=== PATIENT | male | born 1965 | race African-American/Black ===

== ENCOUNTER 2017-05-22 05:10 | Day surgery (SDC) | payer MEDICAID ==
[2017-05-21 12:56] LABS: BASOPHILS 0.3 % (0-2); EOSINOPHILS 2.4 % (0-7); HEMATOCRIT 30.9 % (42.0-54.0); HEMOGLOBIN 10.4 g/dL (13.5-17.5); IMMATURE GRANULOCYTES 0.4 % (0-5); LYMPHOCYTES 19.9 % (15-50); MCH 34.3 pg (26.0-34.0); MCHC 33.7 g/dL (31.0-37.0); MEAN PLATELET VOLUME 10.3 fL (7.4-10.4); MONOCYTES 11.7 % (2-11); NEUTROPHILS 65.3 % (40-80); PLATELET COUNT 224 10x3/uL (130-400); RBC 3.03 10x6/uL (4.20-6.10); RDW 13.8 % (11.5-14.5); WBC 7.4 10x3/uL (4.8-10.8)
[2017-05-21 13:02] LABS: INR 1.15 (0.85-1.17); PROTIME 14.3 SECONDS (11.6-15.0)
[2017-05-21 13:09] LABS: CALCIUM 8.5 mg/dL (8.5-10.1)
[~2017-05-22] VITALS: Ht 180.3 cm; Wt 72.6 kg
[~2017-05-22 05:10] MED LIST: LOPRESSOR25 MG PO; NORVASC5 MG PO; PROVENTIL HFA6.7 GM INH
[2017-05-22 06:51] LABS: POTASSIUM - SERUM 3.5 mmol/L (3.5-5.1)
[2017-05-22] MEDS ORDERED: VITAMIN B-12500 MC1 PO (07:12)
[2017-05-22] MEDS ORDERED: NEURONTIN 300300 MG PO (07:13)
[2017-05-22] MEDS ORDERED: FOLIC ACID1 MG PO (07:13)
[2017-05-22] MEDS ORDERED: BUSPAR 15 MG TA15 MG PO (07:14)
[2017-05-22] MEDS ORDERED: RENA-VITE TABL0.8 MG PO (07:15)
[2017-05-22] MEDS ORDERED: NORVASC5 MG PO (07:15)
[2017-05-22] MEDS ORDERED: FUROSEMIDE40 MG PO (07:15)
[2017-05-22] MEDS ORDERED: FERROUS SULFAT325 MG PO (07:16)
[2017-05-22] MEDS ORDERED: NIASPAN500 MG PO (07:17)
[2017-05-22] MEDS ORDERED: GLUCOTROL 5 MG T5 MG PO (07:17)
[2017-05-22] MEDS ORDERED: HUMULIN 70100 UNIT/1 SC (07:19)
[2017-05-22 07:21] VITALS: BP 177/78; Ht 180.3 cm; Wt 72.6 kg
--- NOTE | 2017-05-22 07:31 | NUR ---
0730-PATIENT POOR HISTORIAN WITH DAILY MEDICATIONS. HOME BOTTLES BROUGHT FOR RECONCILLIATION, PT. UNABLE TO RECALL LAST DOSE OF EACH ONE TAKEN.
[2017-05-22] MEDS ORDERED: ULTRAM50 MG PO (11:02)
--- NOTE | 2017-05-22 11:22 | NUR ---
1115 BACK FROM LEFT ARM AV GRAFT GOOD THRILL AND BRUIT LEFT ARM DRESSING C/D/I ARM IN SLING FROM BLOCK ABLE TO MOVE FINGERS.
--- NOTE | 2017-05-22 14:04 | NUR ---
1215 IV DC WITH CATHER TIP INTACT
--- NOTE | 2017-05-23 15:06 | OP ---
PATIENT NAME: JUDY FERNANDEZ MEDICAL RECORD: [id number] :65 LOCATION:[facility] ADMISSION DATE: SURGEON: ISAI MESSINA MD DATE OF OPERATION: 05/22/2017 OPERATION PERFORMED: Implantation of a left arm proximal brachial artery to proximal basilic vein looped [place] Propaten 6 mm diameter straight PTFE AV graft. PREOPERATIVE NOTE: Mr. Fernandez is a 52-year-old -[place]wegian male with diabetes and hypertension and chronic kidney disease, who is on dialysis now with a tunneled catheter. He needs long-term access. His preoperative vein mapping has showed very small veins. I hope to be able to create a primary brachial basilic fistula in 2 stages. Under a nerve block requested especially to help provide vasodilatation, the patient was placed on the operating table in supine position and administered sedation and monitored per BRANCH CONTROLLER. The left arm was prepped and draped in sterile manner. Topical nitroglycerin paste was applied to the skin of the arm and forearm and a Rach drain used as a proximal venous tourniquet. Ultrasound examination of the vessels in the arm revealed mild to moderate atherosclerotic change in the brachial and radial artery with very small veins. Actually the cephalic vein appeared that it might be suitable for creation of a [place]-type wrist radiocephalic fistula or proximal radial artery based fistula; however, there was an area of occlusion in the cephalic vein near the antecubital space, which I felt would have doomed such an attempt. This patient, who is already on dialysis, needs long-term access, so that we can get his catheter out and minimize his catheter contact time. In the future, he may be a candidate for primary fistula, but I thought that the odds of successful fistula right now favor going ahead of a good graft. I made a vertical incision on the inner aspect of the arm and exposed the brachial artery and basilic vein. They were controlled with Silastic loops. I chose a 6-mm straight [place] Propaten PTFE graft. It was beveled and then the artery was opened for a distance of approximately 6-7 mm. The artery was flushed proximally and distally with heparinized saline and the graft then anastomosed end-to-side end of graft to side of artery with running 6-0 Prolene. The suture line was treated with Evicel and Fibrillar. The suture line was hemostatic. The graft was flushed with heparinized saline and clamped. It was then placed in a looping subcutaneous tunnel with a counterincision on the medial aspect of the antecubital space where actually I had explored for basilic vein and had disappointed findings. The graft was brought back up to the proximal incision where it was shortened and beveled and anastomosed end-to-side to the proximal basilic vein after flushing that vessel also with heparinized saline. The anastomosis completed with running 6-0 Prolene was also treated with Evicel. With release of all the occluding clamps and loops, excellent flow was immediately established in the fistula. Suture lines were hemostatic. The brachial artery at the antecubital level had pulsatile high resistance type Doppler flow signals, which to me indicates absence of significant stealing or reversal of flow at least. The wounds were irrigated with Ancef/gentamicin solution and closed with interrupted inverted 3-0 Vicryl and running intracuticular 4-0 Monocryl and Dermabond glue. They were dressed with Maxorb Ag, Tegaderm and Cavilon skin prep. The patient awakened and returned to the recovery room in stable condition with a very nice fistula, for which I have high expectations. OPERATIVE REPORT [id number] JUDY FERNANDEZ Blood loss was trivial and none replaced. All sponges, instruments and needles were accounted for. No drain was used and no surgical specimen was submitted for histopathology. PLAN: The graft should be able to be used in about 2 weeks. Until then, we will continue to use the tunneled catheter. I have him back to see me in my office next week. He will be discharged today with a prescription for tramadol 50, 20 of them, he can take 1 p.o. q.4 hours p.r.n. pain. He is to leave the initial operative dressings intact and I will remove them when I see him in the office. TRANSINT:[id number] Voice Confirmation ID: [id number] DOCUMENT ID: [id number] ISAI MESSINA MD at 1506 CC: JEFF TRINIDAD MD [id number] DICTATION DATE: 05/22/17 1116 SIDEROGRAPHER: 05/22/[address] [facility] 05/22/17 [place] [id number] [place] [id number]
== END 2017-05-22 12:30 | disposition home or self-care (01) ==
LOC: D.OPS 05:10 → D.PAN 08:00 → D.OPS 12:30
PROVIDERS: Anesthesiology
DX: E11.22 Type 2 diabetes mellitus with diabetic chronic kidney disease (principal); I12.0 Hypertensive chronic kidney disease with stage 5 chronic kidney disease or end stage renal disease; N18.6 End stage renal disease; Z99.2 Dependence on renal dialysis; J45.909 Unspecified asthma, uncomplicated; I10 Essential (primary) hypertension; B19.20 Unspecified viral hepatitis C without hepatic coma; Z01.812 Encounter for preprocedural laboratory examination

== ENCOUNTER 2017-05-25 10:56 | Emergency (ER) | payer MEDICAID ==
[2017-05-22 07:21] VITALS: BMI 22.3
[~2017-05-25 10:56] MED LIST changes: +BUSPAR 15 MG TA15 MG PO; +FERROUS SULFAT325 MG PO; +FOLIC ACID1 MG PO; +FUROSEMIDE40 MG PO; +GLUCOTROL 5 MG T5 MG PO; +HUMULIN 70100 UNIT/1 SC; +NEURONTIN 300300 MG PO; +NIASPAN500 MG PO; +RENA-VITE TABL0.8 MG PO; +ULTRAM50 MG PO; +VITAMIN B-12500 MC1 PO
[2017-05-25 12:23] LABS: BASOPHILS 0.1 % (0-2); EOSINOPHILS 2.6 % (0-7); HEMATOCRIT 29.2 % (42.0-54.0); HEMOGLOBIN 9.6 g/dL (13.5-17.5); IMMATURE GRANULOCYTES 0.4 % (0-5); LYMPHOCYTES 20.9 % (15-50); MCH 34.4 pg (26.0-34.0); MCHC 32.9 g/dL (31.0-37.0); MCV 104.7 fL (80.0-100.0); MEAN PLATELET VOLUME 10.4 fL (7.4-10.4); MONOCYTES 16.9 % (2-11); NEUTROPHILS 59.1 % (40-80); PLATELET COUNT 163 10x3/uL (130-400); RBC 2.79 10x6/uL (4.20-6.10); RDW 14.8 % (11.5-14.5); WBC 7.7 10x3/uL (4.8-10.8)
[2017-05-25 12:41] LABS: ALBUMIN 2.5 g/dL (3.4-5.0); BILIRUBIN - TOTAL 0.37 mg/dL (0.2-1.3); CALCIUM 8.1 mg/dL (8.5-10.1); CARBON DIOXIDE 25.7 mmol/L (21.0-32.0); CREATININE - SERUM 7.1 mg/dL (0.6-1.3); POTASSIUM - SERUM 3.7 mmol/L (3.5-5.1); PROTEIN - SERUM 8.4 g/dL (6.4-8.2)
== END 2017-05-25 12:25 | disposition home or self-care (01) ==
LOC: D.ER 10:56
PROVIDERS: Family Medicine
DX: G89.18 Other acute postprocedural pain (principal); I12.9 Hypertensive chronic kidney disease with stage 1 through stage 4 chronic kidney disease, or unspecified chronic kidney disease; N18.9 Chronic kidney disease, unspecified; E11.9 Type 2 diabetes mellitus without complications; Z99.2 Dependence on renal dialysis

== ENCOUNTER 2017-07-04 19:51 | Inpatient (IN) | payer MEDICAID ==
[~2017-07-04] VITALS: Ht 180.3 cm; Wt 77.5 kg
[2017-07-04 20:02] LABS: BASOPHILS 0 % (0-2); EOSINOPHILS 2.3 % (0-7); HEMOGLOBIN 9.8 g/dL (13.5-17.5); IMMATURE GRANULOCYTES 0.3 % (0-5); LYMPHOCYTES 19.6 % (15-50); MCH 34.5 pg (26.0-34.0); MCHC 32.7 g/dL (31.0-37.0); MCV 105.6 fL (80.0-100.0); MEAN PLATELET VOLUME 9.7 fL (7.4-10.4); MONOCYTES 7.8 % (2-11); PLATELET COUNT 165 10x3/uL (130-400); RBC 2.84 10x6/uL (4.20-6.10); RDW 13.9 % (11.5-14.5)
[2017-07-04 20:21] LABS: ALBUMIN 2.7 g/dL (3.4-5.0); ANION GAP 10.7 mmol/L (8-16); BILIRUBIN - TOTAL 0.65 mg/dL (0.2-1.3); CALCIUM 8.9 mg/dL (8.5-10.1); CARBON DIOXIDE 29.9 mmol/L (21.0-32.0); CREATININE - SERUM 4.8 mg/dL (0.6-1.3); POTASSIUM - SERUM 3.6 mmol/L (3.5-5.1); PROTEIN - SERUM 8.9 g/dL (6.4-8.2)
[2017-07-04] MEDS ORDERED: XALATAN 0.0052.5 ML EACH EYE (21:30)
[2017-07-04] MEDS ORDERED: XANAX0.5 MG PO (21:31)
[2017-07-05 02:55] VITALS: BMI 23.7
[2017-07-05 03:34] VITALS: BP 139/77
[2017-07-05 07:00] VITALS: BP 112/77
[2017-07-05 13:07] VITALS: BP 138/80
[2017-07-05 16:00] VITALS: BP 139/88
[2017-07-05 21:41] VITALS: BP 117/54
[2017-07-06 01:10] VITALS: BP 133/70
[2017-07-06 04:58] VITALS: BP 122/62
[2017-07-06 05:02] LABS: BASOPHILS 0 % (0-2); EOSINOPHILS 6.5 % (0-7); HEMATOCRIT 27.4 % (42.0-54.0); IMMATURE GRANULOCYTES 0.2 % (0-5); LYMPHOCYTES 34.1 % (15-50); MCHC 32.8 g/dL (31.0-37.0); MCV 106.6 fL (80.0-100.0); MEAN PLATELET VOLUME 10.3 fL (7.4-10.4); MONOCYTES 13.5 % (2-11); NEUTROPHILS 45.7 % (40-80); PLATELET COUNT 154 10x3/uL (130-400); RBC 2.57 10x6/uL (4.20-6.10); RDW 14.2 % (11.5-14.5); WBC 4.1 10x3/uL (4.8-10.8)
[2017-07-06 05:18] LABS: ANION GAP 16.9 mmol/L (8-16); CARBON DIOXIDE 24.9 mmol/L (21.0-32.0); POTASSIUM - SERUM 3.8 mmol/L (3.5-5.1)
[2017-07-06 05:22] LABS: CREATININE - SERUM 6.6 mg/dL (0.6-1.3)
[2017-07-06 08:14] VITALS: BP 137/70
[2017-07-06 12:08] VITALS: Ht 180.3 cm; Wt 77.5 kg
[2017-07-06 16:13] VITALS: BP 141/75
[2017-07-06 20:00] VITALS: BP 130/76
[2017-07-07 04:00] VITALS: BP 136/60
[2017-07-07 06:08] LABS: BASOPHILS 0.2 % (0-2); EOSINOPHILS 5.7 % (0-7); HEMATOCRIT 29.5 % (42.0-54.0); HEMOGLOBIN 9.3 g/dL (13.5-17.5); IMMATURE GRANULOCYTES 0.2 % (0-5); LYMPHOCYTES 38.9 % (15-50); MCH 34.3 pg (26.0-34.0); MCHC 31.5 g/dL (31.0-37.0); MEAN PLATELET VOLUME 10.7 fL (7.4-10.4); MONOCYTES 17.3 % (2-11); NEUTROPHILS 37.7 % (40-80); PLATELET COUNT 165 10x3/uL (130-400); RBC 2.71 10x6/uL (4.20-6.10); WBC 4.2 10x3/uL (4.8-10.8)
[2017-07-07 06:25] LABS: ALBUMIN 2.3 g/dL (3.4-5.0); ANION GAP 17.9 mmol/L (8-16); BILIRUBIN - DIRECT 0.12 mg/dL (0.00-0.30); BILIRUBIN - INDIRECT 0.21 mg/dL (0.00-1.00); BILIRUBIN - TOTAL 0.33 mg/dL (0.2-1.3); CALCIUM 7.8 mg/dL (8.5-10.1); CARBON DIOXIDE 23.3 mmol/L (21.0-32.0); CREATININE - SERUM 7.4 mg/dL (0.6-1.3); PHOSPHOROUS 7.4 mg/dL (2.5-4.9); POTASSIUM - SERUM 4.2 mmol/L (3.5-5.1); PROTEIN - SERUM 7.9 g/dL (6.4-8.2)
[2017-07-07 06:45] LABS: MCV 108.9 fL (80.0-100.0)
[2017-07-07 09:12] VITALS: BP 132/60
[2017-07-07 12:10] VITALS: BP 130/71
[2017-07-07 17:34] VITALS: BP 134/75
[2017-07-07 21:31] VITALS: BP 165/84
[2017-07-08 00:30] VITALS: BP 135/67
[2017-07-08 04:30] VITALS: BP 126/72
[2017-07-08 06:16] LABS: BASOPHILS 0.3 % (0-2); EOSINOPHILS 7.3 % (0-7); HEMATOCRIT 30.8 % (42.0-54.0); HEMOGLOBIN 9.8 g/dL (13.5-17.5); LYMPHOCYTES 42.6 % (15-50); MCH 34.3 pg (26.0-34.0); MCHC 31.8 g/dL (31.0-37.0); MCV 107.7 fL (80.0-100.0); MEAN PLATELET VOLUME 9.8 fL (7.4-10.4); MONOCYTES 12.6 % (2-11); NEUTROPHILS 37.2 % (40-80); PLATELET COUNT 160 10x3/uL (130-400); RBC 2.86 10x6/uL (4.20-6.10); RDW 13.8 % (11.5-14.5)
[2017-07-08 06:32] LABS: ANION GAP 13.6 mmol/L (8-16); CALCIUM 7.8 mg/dL (8.5-10.1); CARBON DIOXIDE 27.5 mmol/L (21.0-32.0); PHOSPHOROUS 6.3 mg/dL (2.5-4.9); POTASSIUM - SERUM 4.1 mmol/L (3.5-5.1)
[2017-07-08 09:37] VITALS: BP 119/72
[2017-07-08 12:33] VITALS: BP 126/66
[2017-07-08] MEDS ORDERED: ZITHROMAX250 MG PO (12:34)
[2017-07-08 14:21] LABS: HEPATITIS BE ANTIBODY Negative (Negative)
== END 2017-07-08 15:06 | disposition home or self-care (01) | DRG 152 ==
LOC: D.ER 19:51 → OBSVTIME 20:48 → D.M2 20:48
PROVIDERS: Emergency Medicine; Internal Medicine; Internal Medicine Nephrology
PROC: 5A1D70Z Performance of Urinary Filtration, Intermittent, Less than 6 Hours Per Day (ICD-10-PCS; principal; 2017-07-07)
DX: J11.1 Influenza due to unidentified influenza virus with other respiratory manifestations (principal); N18.6 End stage renal disease; I12.0 Hypertensive chronic kidney disease with stage 5 chronic kidney disease or end stage renal disease; E11.22 Type 2 diabetes mellitus with diabetic chronic kidney disease; Z99.2 Dependence on renal dialysis; B19.20 Unspecified viral hepatitis C without hepatic coma; Z72.0 Tobacco use

== ENCOUNTER 2017-07-14 16:33 | Emergency (ER) | payer MEDICAID ==
[~2017-07-14 16:33] MED LIST changes: +XALATAN 0.0052.5 ML EACH EYE; +XANAX0.5 MG PO; +ZITHROMAX250 MG PO
[2017-07-14 17:20] LABS: BASOPHILS 0 % (0-2); EOSINOPHILS 3.4 % (0-7); HEMOGLOBIN 10.4 g/dL (13.5-17.5); IMMATURE GRANULOCYTES 0.2 % (0-5); LYMPHOCYTES 34.1 % (15-50); MCH 35.5 pg (26.0-34.0); MCHC 33.5 g/dL (31.0-37.0); MCV 105.8 fL (80.0-100.0); MEAN PLATELET VOLUME 9.7 fL (7.4-10.4); MONOCYTES 13.7 % (2-11); NEUTROPHILS 48.6 % (40-80); PLATELET COUNT 173 10x3/uL (130-400); RBC 2.93 10x6/uL (4.20-6.10); RDW 13.3 % (11.5-14.5); WBC 4.2 10x3/uL (4.8-10.8)
[2017-07-14 17:41] LABS: ALBUMIN 2.7 g/dL (3.4-5.0); ANION GAP 13.5 mmol/L (8-16); BILIRUBIN - TOTAL 0.41 mg/dL (0.2-1.3); CALCIUM 7.8 mg/dL (8.5-10.1); CREATININE - SERUM 5.2 mg/dL (0.6-1.3); POTASSIUM - SERUM 3.5 mmol/L (3.5-5.1); PROTEIN - SERUM 8.9 g/dL (6.4-8.2)
[2017-07-14 18:29] LABS: APPEARANCE HAZY (CLEAR); BILIRUBIN NEGATIVE (NEGATIVE); COLOR YELLOW (YELLOW); GLUCOSE NEGATIVE (NEGATIVE); KETONE NEGATIVE (NEGATIVE); NITRITE NEGATIVE (NEGATIVE); PROTEIN TRACE mg/dL (NEGATIVE); SPECIFIC GRAVITY 1.015 (1.005-1.020); UROBILINOGEN NORMAL (NORMAL)
[2017-07-14 18:31] LABS: BACTERIA MODERATE /hpf (NONE SEEN); RED CELLS - URINE 0-5 /hpf (0-5); WHITE CELLS - URINE 0-5 /hpf (0-5)
[2017-07-14 19:30] LABS: UDS - AMPHET NEGATIVE QUAL (NEGATIVE); UDS - BARB NEGATIVE QUAL (NEGATIVE); UDS - BENZO NEGATIVE QUAL (NEGATIVE); UDS - COCAINE POSITIVE QUAL (NEGATIVE); UDS - OPIATE NEGATIVE QUAL (NEGATIVE); UDS - PCP NEGATIVE QUAL (NEGATIVE); UDS - THC NEGATIVE QUAL (NEGATIVE)
== END 2017-07-17 16:28 | disposition home or self-care (01) ==
LOC: D.ER 16:33
PROVIDERS: Emergency Medicine
DX: I12.9 Hypertensive chronic kidney disease with stage 1 through stage 4 chronic kidney disease, or unspecified chronic kidney disease (principal); N18.9 Chronic kidney disease, unspecified

== ENCOUNTER 2017-09-30 20:42 | Inpatient (IN) | payer MEDICAID ==
[~2017-09-30] VITALS: Ht 180.3 cm; Wt 79.6 kg
--- NOTE | ~2017-09-30 | HP ---
PATIENT: JUDY MCNULTY MEDICAL RECORD: [id number] ACCOUNT: [id number] LOCATION:[facility] [id number] : 65 ADMISSION DATE: 10/01/17 HISTORY AND PHYSICAL EXAMINATION REASON FOR ADMISSION: 1. Pneumonia. 2. Cellulitis of his left upper extremity graft with pneumonia to his right lower lobe. HISTORY OF PRESENT ILLNESS: This is a 52-year-old gentleman who struggles with cocaine addiction and depression related to the cocaine. He had missed some dialysis treatments and went and had his access needle infiltrate his fistula. He came to the Emergency Room for some pain related to his fistula and was found to have right lower lobe pneumonia along with his temperature that he had at home. REVIEW OF SYSTEMS: Indicating he is having severe pain and needs [place] and that was mostly the bases all of our conversation. No cough, congestion, shortness of breath, or sputum production. No pleurisy, mostly pain associated with his arm. All other review of systems are negative. PAST MEDICAL HISTORY: 1. Depression and has been admitted to inpatient facility for suicidal ideation that was evaluated and treated (likely needed a place to stay as he did not want to discontinue dialysis as he would ). 2. ESRD. 3. Cocaine addiction. 4. Hypertension. 5. Neuropathy. 6. Diabetes, insulin-dependent type 2. 7. Anemia of CKD. 8. Hyperphosphatemia. 9. Secondary hyperparathyroidism. PAST SURGICAL HISTORY: Left upper extremity graft placement. ALLERGIES: NKDA. SOCIAL HISTORY: Cocaine, but no tobacco, alcohol, or illicit drugs are mentioned. Not sure of his living situation. MEDICATIONS: Amlodipine 5 mg a day; metoprolol 25 b.i.d.; niacin 500 at night; Neurontin 300 b.i.d.; BuSpar 15 daily; Xanax 0.5 p.r.n.; Lasix 40 a day, that he is to take on nondialysis days; Xalatan 2.5 mL drops, 1 drop each night to each eye; NPH 20 b.i.d.; Glipizide 5 a day; vitamin B12 500 mcg a day; and Daysi-Manny 1 a day. PHYSICAL EXAMINATION: VITAL SIGNS: He is 142/72 by the medical doctor, 18 respiratory rate, 72 heart rate. GENERAL: He is alert and oriented times 3, up walking around. NEUROLOGIC: Cranial nerves II through XII are intact. NECK: No thyromegaly. UPPER EXTREMITIES: Left upper extremity graft with an infiltration, but not an HISTORY AND PHYSICAL [id number] JUDY MCNULTY obvious infection this morning. Some bruising and ecchymosis near the deltoid. Good thrill and bruit. LUNGS: Nonpulsatile lungs with right lower lobe crackles. ABDOMEN: Nontender in all 4 quadrants. LOWER EXTREMITIES: Trace lower extremity edema. No toe lesions or foot lesions. LABORATORY DATA: H&H with an MCV of 104. White blood cell count 5500. BUN 43, creatinine 6.7, glucose 124. AST and ALT are normal. Albumin 2.6. ASSESSMENT: 1. Pneumonia. He is on antibiotics from the Emergency Room. 2. End-stage renal disease. We will continue his dialysis and discuss compliance. 3. Cocaine addiction. He is usually remorseful and nice gentleman, but does consume a lot of his budget that has resulted in his inability to purchase food. He does eat very well while in the hospital. When he is at the dialysis unit, he asked for food constantly from patients and nurses. Albumin is only 2.6. 4. Hyperphosphatemia. I did not see that he had a binder. I am going to check his phosphorus. He may be simply following his diet, but that would likely be martín as he is unsure of the foods that have phosphorus despite education. 5. Anemia of CKD. If he remains admitted, we will continue erythropoietin. Hemoglobin is 10.7/32. 6. Hypertension. Continue current medications. 7. Depression. I do not think that he really intended to commit suicide as we discussed that he could simply stop dialysis and every time I have discussed this with him he has said that he does not want to and that would happen if he stopped dialysis. Generally, he needs a place to stay and knows that if he comes to the Emergency Room. PLAN: 1. Please see orders. 2. Dialysis. 3. Vancomycin and follow levels. 4. Resume medications, sliding scale. TRANSINT:[id number] Voice Confirmation ID: [id number] DOCUMENT ID: [id number] JEFF TRINIDAD MD at 1143 CC: [id number] DICTATION DATE: 10/01/17716 INTERIOR DESIGN PROFESSIONAL: 10/01/17833 DIS IN 10/07/17 [facility] [address] [facility] [place] [address]
[2017-09-30 23:22] LABS: BASOPHILS 0.4 % (0-2); EOSINOPHILS 3.4 % (0-7); HEMATOCRIT 32.3 % (42.0-54.0); HEMOGLOBIN 10.7 g/dL (13.5-17.5); IMMATURE GRANULOCYTES 0.4 % (0-5); LYMPHOCYTES 32.3 % (15-50); MCH 34.6 pg (26.0-34.0); MCHC 33.1 g/dL (31.0-37.0); MCV 104.5 fL (80.0-100.0); MEAN PLATELET VOLUME 10.2 fL (7.4-10.4); MONOCYTES 14.4 % (2-11); NEUTROPHILS 49.1 % (40-80); PLATELET COUNT 183 10x3/uL (130-400); RBC 3.09 10x6/uL (4.20-6.10); RDW 13.3 % (11.5-14.5); WBC 5.5 10x3/uL (4.8-10.8)
[2017-09-30 23:35] LABS: ALBUMIN 2.6 g/dL (3.4-5.0); ANION GAP 14.8 mmol/L (8-16); BILIRUBIN - TOTAL 0.4 mg/dL (0.2-1.3); CALCIUM 9.3 mg/dL (8.5-10.1); CARBON DIOXIDE 26.2 mmol/L (21.0-32.0); CREATININE - SERUM 6.7 mg/dL (0.6-1.3)
[2017-10-01 05:36] VITALS: BP 174/85
[2017-10-01 06:01] VITALS: BP 174/85; BMI 25.2
[2017-10-01 08:36] VITALS: BP 147/74
[2017-10-01 11:52] VITALS: BP 155/84
[2017-10-01 13:39] VITALS: Ht 180.3 cm; Wt 79.6 kg
[2017-10-01 15:40] VITALS: BP 143/78
[2017-10-01 20:37] VITALS: BP 123/71
[2017-10-02 00:46] VITALS: BP 108/64
[2017-10-02 05:50] VITALS: BP 99/54
[2017-10-02 07:55] VITALS: BP 109/64
[2017-10-02 11:37] VITALS: BP 124/63
[2017-10-02 15:35] VITALS: BP 117/69
[2017-10-02 20:00] VITALS: BP 127/65
[2017-10-03 01:00] VITALS: BP 140/78
[2017-10-03 05:30] VITALS: BP 115/52
[2017-10-03 07:06] LABS: BASOPHILS 0.2 % (0-2); EOSINOPHILS 5.2 % (0-7); HEMATOCRIT 31.6 % (42.0-54.0); HEMOGLOBIN 10.1 g/dL (13.5-17.5); IMMATURE GRANULOCYTES 0.2 % (0-5); LYMPHOCYTES 27.2 % (15-50); MCH 34.5 pg (26.0-34.0); MCV 107.8 fL (80.0-100.0); MEAN PLATELET VOLUME 9.8 fL (7.4-10.4); MONOCYTES 15.9 % (2-11); NEUTROPHILS 51.3 % (40-80); PLATELET COUNT 192 10x3/uL (130-400); RBC 2.93 10x6/uL (4.20-6.10); RDW 13.6 % (11.5-14.5); WBC 6.2 10x3/uL (4.8-10.8)
[2017-10-03 07:22] LABS: ANION GAP 16.2 mmol/L (8-16); CALCIUM 8.5 mg/dL (8.5-10.1); CARBON DIOXIDE 27.4 mmol/L (21.0-32.0); CREATININE - SERUM 8.3 mg/dL (0.6-1.3); PHOSPHOROUS 8.5 mg/dL (2.5-4.9); POTASSIUM - SERUM 4.6 mmol/L (3.5-5.1)
[2017-10-03 08:52] VITALS: BP 142/79
[2017-10-03 20:59] VITALS: BP 126/78
[2017-10-04 02:21] VITALS: BP 108/72
[2017-10-04 06:13] VITALS: BP 119/69
[2017-10-04 06:58] LABS: BASOPHILS 0.3 % (0-2); HEMATOCRIT 28.6 % (42.0-54.0); HEMOGLOBIN 9.1 g/dL (13.5-17.5); IMMATURE GRANULOCYTES 0.2 % (0-5); LYMPHOCYTES 27.3 % (15-50); MCH 34.3 pg (26.0-34.0); MCHC 31.8 g/dL (31.0-37.0); MCV 107.9 fL (80.0-100.0); MEAN PLATELET VOLUME 10.1 fL (7.4-10.4); NEUTROPHILS 51.2 % (40-80); PLATELET COUNT 197 10x3/uL (130-400); RBC 2.65 10x6/uL (4.20-6.10); RDW 13.5 % (11.5-14.5); WBC 6.6 10x3/uL (4.8-10.8)
[2017-10-04 07:22] LABS: ANION GAP 16.3 mmol/L (8-16); CALCIUM 8.3 mg/dL (8.5-10.1); CARBON DIOXIDE 22.3 mmol/L (21.0-32.0); CREATININE - SERUM 7.1 mg/dL (0.6-1.3); PHOSPHOROUS 7.3 mg/dL (2.5-4.9); POTASSIUM - SERUM 4.6 mmol/L (3.5-5.1); VANCOMYCIN - RANDOM 31.5 ug/mL (10.0-20.0)
[2017-10-04 08:15] VITALS: BP 118/76
[2017-10-04 11:53] VITALS: BP 123/72
[2017-10-04 15:46] VITALS: BP 132/70
[2017-10-04 21:22] VITALS: BP 139/68
[2017-10-05 01:10] VITALS: BP 156/62
[2017-10-05 05:09] VITALS: BP 121/77
[2017-10-05 05:14] LABS: BASOPHILS 0.2 % (0-2); EOSINOPHILS 4.7 % (0-7); HEMATOCRIT 31.7 % (42.0-54.0); IMMATURE GRANULOCYTES 0.2 % (0-5); LYMPHOCYTES 27.2 % (15-50); MCH 34.4 pg (26.0-34.0); MCHC 31.5 g/dL (31.0-37.0); MCV 108.9 fL (80.0-100.0); MEAN PLATELET VOLUME 9.6 fL (7.4-10.4); MONOCYTES 14.7 % (2-11); PLATELET COUNT 192 10x3/uL (130-400); RBC 2.91 10x6/uL (4.20-6.10); RDW 13.6 % (11.5-14.5); WBC 6.3 10x3/uL (4.8-10.8)
[2017-10-05 05:45] LABS: ANION GAP 17.6 mmol/L (8-16); CALCIUM 8.8 mg/dL (8.5-10.1); CREATININE - SERUM 8.5 mg/dL (0.6-1.3); PHOSPHOROUS 8.6 mg/dL (2.5-4.9); POTASSIUM - SERUM 4.6 mmol/L (3.5-5.1); VANCOMYCIN - RANDOM 28.6 ug/mL (10.0-20.0)
[2017-10-05 09:42] VITALS: BP 169/85
[2017-10-05 12:39] VITALS: BP 149/86
[2017-10-05 16:41] VITALS: BP 142/81
[2017-10-05 21:23] VITALS: BP 159/74
[2017-10-06 02:34] VITALS: BP 113/71
[2017-10-06 05:28] VITALS: BP 105/63
[2017-10-06 05:42] LABS: BASOPHILS 0 % (0-2); EOSINOPHILS 1.9 % (0-7); HEMATOCRIT 29.3 % (42.0-54.0); HEMOGLOBIN 9.2 g/dL (13.5-17.5); IMMATURE GRANULOCYTES 0.3 % (0-5); LYMPHOCYTES 14.7 % (15-50); MCH 33.8 pg (26.0-34.0); MCHC 31.4 g/dL (31.0-37.0); MCV 107.7 fL (80.0-100.0); MEAN PLATELET VOLUME 10.6 fL (7.4-10.4); MONOCYTES 13.2 % (2-11); NEUTROPHILS 69.9 % (40-80); PLATELET COUNT 192 10x3/uL (130-400); RBC 2.72 10x6/uL (4.20-6.10); RDW 13.4 % (11.5-14.5)
[2017-10-06 06:20] LABS: CALCIUM 8.2 mg/dL (8.5-10.1); CREATININE - SERUM 9.8 mg/dL (0.6-1.3); PHOSPHOROUS 8.1 mg/dL (2.5-4.9)
[2017-10-06 06:21] LABS: ANION GAP 22.4 mmol/L (8-16); CARBON DIOXIDE 18.5 mmol/L (21.0-32.0); POTASSIUM - SERUM 5.9 mmol/L (3.5-5.1)
[2017-10-06 08:35] VITALS: BP 126/74
[2017-10-06 11:35] VITALS: BP 149/71
[2017-10-06 20:00] VITALS: BP 141/72
[2017-10-06 23:00] VITALS: BP 145/64
[2017-10-07 04:00] VITALS: BP 124/58
[2017-10-07 05:33] LABS: BASOPHILS 0.2 % (0-2); EOSINOPHILS 2.3 % (0-7); HEMATOCRIT 28.4 % (42.0-54.0); HEMOGLOBIN 9.1 g/dL (13.5-17.5); IMMATURE GRANULOCYTES 0.3 % (0-5); LYMPHOCYTES 26.3 % (15-50); MCH 34.3 pg (26.0-34.0); MCV 107.2 fL (80.0-100.0); MEAN PLATELET VOLUME 9.5 fL (7.4-10.4); MONOCYTES 13.5 % (2-11); NEUTROPHILS 57.4 % (40-80); PLATELET COUNT 189 10x3/uL (130-400); RBC 2.65 10x6/uL (4.20-6.10); RDW 13.3 % (11.5-14.5); WBC 6.5 10x3/uL (4.8-10.8)
[2017-10-07 06:27] LABS: CALCIUM 8.4 mg/dL (8.5-10.1); CREATININE - SERUM 8.2 mg/dL (0.6-1.3); PHOSPHOROUS 7.6 mg/dL (2.5-4.9)
[2017-10-07 06:28] LABS: CARBON DIOXIDE 24.9 mmol/L (21.0-32.0)
[2017-10-07 07:25] LABS: ANION GAP 18.3 mmol/L (8-16)
[2017-10-07 07:32] LABS: POTASSIUM - SERUM 4.2 mmol/L (3.5-5.1)
[2017-10-07] MEDS ORDERED: AUGMENTIN 500-11 TA1 PO (07:46)
[2017-10-07 08:00] VITALS: BP 122/71
[2017-10-07 11:39] VITALS: BP 120/66
== END 2017-10-07 12:37 | disposition home or self-care (01) | DRG 314 ==
LOC: D.ER 20:42 → D.M2 10-01 01:43 → D.EDHOLD 10-01 01:43 → D.M2 10-01 02:52
PROVIDERS: Internal Medicine Nephrology; Physician Assistant
PROC: 5A1D70Z Performance of Urinary Filtration, Intermittent, Less than 6 Hours Per Day (ICD-10-PCS; principal; 2017-10-01)
DX: T82.7XXA Infection and inflammatory reaction due to other cardiac and vascular devices, implants and grafts, initial encounter (principal); J18.9 Pneumonia, unspecified organism; N18.6 End stage renal disease; I12.0 Hypertensive chronic kidney disease with stage 5 chronic kidney disease or end stage renal disease; Y83.8 Other surgical procedures as the cause of abnormal reaction of the patient, or of later complication, without mention of misadventure at the time of the procedure; E11.22 Type 2 diabetes mellitus with diabetic chronic kidney disease; Z99.2 Dependence on renal dialysis; Z79.4 Long term (current) use of insulin; E11.40 Type 2 diabetes mellitus with diabetic neuropathy, unspecified; D63.1 Anemia in chronic kidney disease; E21.3 Hyperparathyroidism, unspecified

== ENCOUNTER 2017-10-08 16:17 | Emergency (ER) | payer MEDICAID ==
[2017-10-01 13:39] VITALS: BMI 25.1
[~2017-10-08 16:17] MED LIST changes: +AUGMENTIN 500-11 TA1 PO
[2017-10-08 21:00] LABS: BASOPHILS 0.2 % (0-2); EOSINOPHILS 3.5 % (0-7); HEMATOCRIT 28.6 % (42.0-54.0); HEMOGLOBIN 9.3 g/dL (13.5-17.5); IMMATURE GRANULOCYTES 0.2 % (0-5); LYMPHOCYTES 26.9 % (15-50); MCH 34.2 pg (26.0-34.0); MCHC 32.5 g/dL (31.0-37.0); MCV 105.1 fL (80.0-100.0); MEAN PLATELET VOLUME 10.2 fL (7.4-10.4); MONOCYTES 14.8 % (2-11); NEUTROPHILS 54.4 % (40-80); PLATELET COUNT 213 10x3/uL (130-400); RBC 2.72 10x6/uL (4.20-6.10); RDW 12.9 % (11.5-14.5); WBC 5.4 10x3/uL (4.8-10.8)
[2017-10-08 21:06] LABS: ANION GAP 13.7 mmol/L (8-16); BILIRUBIN - TOTAL 0.44 mg/dL (0.2-1.3); CALCIUM 8.3 mg/dL (8.5-10.1); CARBON DIOXIDE 27.5 mmol/L (21.0-32.0); PROTEIN - SERUM 8.5 g/dL (6.4-8.2)
[2017-10-08 21:09] LABS: CREATININE - SERUM 5.3 mg/dL (0.6-1.3)
[2017-10-08 21:10] LABS: POTASSIUM - SERUM 3.2 mmol/L (3.5-5.1)
== END 2017-10-09 02:17 | disposition home or self-care (01) ==
LOC: D.ER 16:17
PROVIDERS: Physician Assistant
DX: Z87.01 Personal history of pneumonia (recurrent) (principal); L03.114 Cellulitis of left upper limb; R22.9 Localized swelling, mass and lump, unspecified; E11.9 Type 2 diabetes mellitus without complications; I12.9 Hypertensive chronic kidney disease with stage 1 through stage 4 chronic kidney disease, or unspecified chronic kidney disease; N18.9 Chronic kidney disease, unspecified; Z99.2 Dependence on renal dialysis

== ENCOUNTER 2018-06-21 15:54 | Emergency (ER) | payer MEDICAID ==
[~2018-06-21] VITALS: Ht 180.3 cm; Wt 72.7 kg
[2018-06-21 15:58] VITALS: BP 176/92; Ht 180.3 cm; Wt 72.7 kg
== END 2018-06-21 17:50 ==
LOC: D.ER 15:54
DX: I12.9 Hypertensive chronic kidney disease with stage 1 through stage 4 chronic kidney disease, or unspecified chronic kidney disease (principal); N18.9 Chronic kidney disease, unspecified; Z99.2 Dependence on renal dialysis; E11.9 Type 2 diabetes mellitus without complications; B19.20 Unspecified viral hepatitis C without hepatic coma

== ENCOUNTER 2019-03-30 02:42 | Inpatient (IN) | payer MEDICAID ==
[2019-03-30] VITALS (49 sets, daily range): BP systolic 116–213; BP diastolic 69–115; Ht 180.3 cm; Wt 79.5 kg
[~2019-03-30] VITALS: Ht 180.3 cm; Wt 79.5 kg
[2019-03-30 03:19] LABS: BASOPHILS 0.2 % (0-2); EOSINOPHILS 3.6 % (0-7); HEMOGLOBIN 8.1 g/dL (13.5-17.5); IMMATURE GRANULOCYTES 0.2 % (0-5); MCH 31.5 pg (26.0-34.0); MCHC 31.2 g/dL (31.0-37.0); MCV 101.2 fL (80.0-100.0); MEAN PLATELET VOLUME 8.7 fL (7.4-10.4); MONOCYTES 11.5 % (2-11); NEUTROPHILS 68.5 % (40-80); PLATELET COUNT 194 10x3/uL (130-400); RBC 2.57 10x6/uL (4.20-6.10); RDW 17.9 % (11.5-14.5); WBC 5.6 10x3/uL (4.8-10.8)
[2019-03-30 03:28] LABS: ALBUMIN 2.3 g/dL (3.4-5.0); ANION GAP 14.4 mmol/L (8-16); BILIRUBIN - TOTAL 0.5 mg/dL (0.2-1.3); CALCIUM 9.1 mg/dL (8.5-10.1); CARBON DIOXIDE 25.5 mmol/L (21.0-32.0); CREATININE - SERUM 10.4 mg/dL (0.6-1.3); MAGNESIUM - SERUM 2.1 mg/dL (1.8-2.4); PHOSPHOROUS 6.4 mg/dL (2.5-4.9); POTASSIUM - SERUM 4.9 mmol/L (3.5-5.1)
--- NOTE | 2019-03-30 06:31 | NUR ---
PT RECIEVED FROM ED FULLY DRESSED. TRANSFERRED TO ICU BED 2311. MONITOR EQUIP ESTABLISHED AND ASSISTED INTO A GOWN. NIPRIDE GTT BEING TITRATED TO HELP CONTROL BP. DENIES PAIN. REQUESTING SOMETHING TO EAT.
--- NOTE | 2019-03-30 07:00 | NUR ---
REPORT RECIEVED FROM HASEEB CHEATHAM. PATIENT IS ALERT AND ORIENTED. STATES HE IS IN PAIN AND WANTS HYDROCODONE. DR TRNIIDAD IS AT BEDSIDE. HYDROCONDE ORDERED. NO DISTRESS. 2 L NC 99%. PULSES PALP. PINK EXTREMITIES. HOB 30. SKIN INTACT. LUNGS CTA. LOWER DIMINISHED LOBES. WILL CONTINUE TO MONITOR
--- NOTE | 2019-03-30 13:40 | NUR ---
PATIENT SLEEPING. EASILY AROUSED. TRAY PICKED UP 100% EATEN. NO DISTRESS. ALERT AND ORIENTED. TURNED INDEPENDENTLY. REPORT GIVEN TO JITENDRA CHEATHAM.
--- NOTE | 2019-03-30 15:15 | NUR ---
REASSESSMENT COMPLETE PER FLOW SHEET. VSS. NO NEW CHANGES PT RESTING COMFORTALBY WILL CONTINUE TO MONITOR
--- NOTE | 2019-03-30 17:15 | NUR ---
FAMILY CALLED GIVEN UDPATE. NO NEW CHANGES PT RESTING COMFORTABLY WILL CONTINUET O MONITOR
--- NOTE | 2019-03-30 18:29 | MORECARE ---
CASE MANAGEMENT DISCHARGE SUMMARY PATIENT: JUDY MCNULTY UNIT: [id number] ADM DATE: 03/30/19 AGE: 53 : 65 SEX: M ROOM/BED: D.2311 AUTHOR: BRITT LERMA PHYSICIAN: REFERRING PHYSICIAN: ALE GUPTA MD DATE OF SERVICE: 03/30/19 Discharge Plan Patient Name: JUDY MCNULTY Facility: [facility]:[place] : 1965 Planned Disposition: Home Anticipated Discharge Date: Discharge Date: Expected LOS: Initial Reviewer: [email or web address] Initial Review Date: 03/30/2019 Generated: 03/30/19 7:29 pm DCPIA - Discharge Planning Initial Assessment Updated by [email or web address]: Ginger Lindsay on 03/30/19 6:24 pm * Is the patient Alert and Oriented? Yes * How many steps to enter\exit or inside your home? several * PCP NO PCP * Pharmacy [facility] * Preadmission Environment Home with Family * ADLs Independent * Equipment Hospital Bed * Other Equipment WALKER * Verbal permission to speak to the caregivers and representatives has been obtained from the patient. No * Please name any agencies selected above. [facility] in [place] * Additional services required to return to the preadmission environment? No * Can the patient safely return to the preadmission environment? Yes * Has this patient been hospitalized within the prior 30 days at any hospital? Yes Patient Name: JUDY MCNULTY Page [id number] at 1829 All edits/amendments must be made on the electronic document DICTATION DATE: 03/30/191828 JOY OPERATOR HELPER: GRANT 03/30/191828 RPT#: [id number] DC DATE: STATUS: ADM IN [place] [address] [place] [address] END OF REPORT
--- NOTE | 2019-03-30 18:51 | MORECARE ---
CASE MANAGEMENT DISCHARGE SUMMARY PATIENT: JUDY MCNULTY UNIT: [id number] ADM DATE: 03/30/19 AGE: 53 : 65 SEX: M ROOM/BED: D.2311 AUTHOR: MARIA GUADALUPE,DOC PHYSICIAN: REFERRING PHYSICIAN: ALE GUPTA MD DATE OF SERVICE: 03/30/19 Discharge Plan Patient Name: JUDY MCNULTY Facility: [facility]:[place] : 1965 Planned Disposition: Home Anticipated Discharge Date: Discharge Date: Expected LOS: Initial Reviewer: [email or web address] Initial Review Date: 03/30/2019 Generated: 03/30/19 7:50 pm Comments DCP- Discharge Planning Updated by [email or web address]: Ginger Lindsay on 03/30/19 5:[address] Patient Name: JDUY MCNULTY Admission Status: ER Accout number: [id number] Admission Date: 03-30-2019 : 1965 Admission Diagnosis: Attending: ALE GUPTA Current LOS: 1 Anticipated DC Date: Planned Disposition: Home Primary Insurance: MEDICAID [place] Discharge Planning Comments: CM met with patient at bedside after explaining CM role and obtaining verbal consent. Patient lives at home with his friend ?Cris? Woody [phone] where he just moved in with since discharge from [facility] last week post broken hip. and plans to return there upon discharge. Patient feels this would be a safe discharge. CM discussed availability / needs of home health and medical equipment. Patient denies any discharge needs at this time. Patient's friend had told Caroline and LINDA @ [facility] when he was discharged last week that she would transport patient to dialysis in [place] and get [employer] transportation set up but he never went to dialysis after discharge. Patient is wanting to get set up with dialysis unit here in [place]. CM has informed Caroline with [facility] of patient's request. Patient states he will have his friend drive him home upon discharge. CM will continue to follow and assist as needed with discharge planning / needs. Tire Recapping Machine Operator: Ginger Lindsay DCPIA - Discharge Planning Initial Assessment Updated by [email or web address]: Ginger Lindsay on 03/30/19 6:24 pm * Is the patient Alert and Oriented? Yes * How many steps to enter\exit or inside your home? several * PCP NO PCP * [facility]acy [facility] * Preadmission Environment Home with Family * ADLs Independent * Equipment Hospital Bed * Other Equipment WALKER * Verbal permission to speak to the caregivers and representatives has been obtained from the patient. No * Please name any agencies selected above. [facility] in [place] * Additional services required to return to the preadmission environment? No * Can the patient safely return to the preadmission environment? Yes * Has this patient been hospitalized within the prior 30 days at any hospital? Yes Last DP export: 03/30/19 5:29 Patient Name: JUDY MCNULTY Page [phone] at 1851 All edits/amendments must be made on the electronic document DICTATION DATE: 03/30/191849 SHEET FED PRINTER: GRANT 03/30/191849 RPT#: [id number] DC DATE: STATUS: ADM IN [facility] [address] [place] [address] END OF REPORT
--- NOTE | 2019-03-30 19:00 | NUR ---
REPORT RECIEVED, PT AAOX4, NO ACUTE DISTRESS NOTED. ASSESSMENT COMPLETED, SEE FLOWSHEET. PAGED DR TRINIDAD, AWAITING CALL BACK. WILL CONTINUE TO MONITOR.
--- NOTE | 2019-03-30 21:00 | NUR ---
DIALYSIS NURSE AT BEDSIDE.
--- NOTE | 2019-03-30 23:30 | NUR ---
DIALYSIS COMPLETE. PT RESTING IN BED, VITALS STABLE.
[2019-03-31] VITALS (11 sets, daily range): BP systolic 112–152; BP diastolic 47–88
--- NOTE | 2019-03-31 01:06 | NUR ---
PT RESTING IN BED, NO ACUTE DISTRESS NOTED. PT REPORTS FEELING "DIZZY" VITALS STABLE, WILL CONTINUE TO MONITOR.
[2019-03-31 04:19] LABS: BASOPHILS 0.2 % (0-2); HEMATOCRIT 25.1 % (42.0-54.0); HEMOGLOBIN 7.7 g/dL (13.5-17.5); IMMATURE GRANULOCYTES 0.4 % (0-5); LYMPHOCYTES 15.6 % (15-50); MCH 31.2 pg (26.0-34.0); MCHC 30.7 g/dL (31.0-37.0); MCV 101.6 fL (80.0-100.0); MEAN PLATELET VOLUME 9.1 fL (7.4-10.4); MONOCYTES 17.9 % (2-11); NEUTROPHILS 59.9 % (40-80); PLATELET COUNT 189 10x3/uL (130-400); RBC 2.47 10x6/uL (4.20-6.10); RDW 17.6 % (11.5-14.5); WBC 5.2 10x3/uL (4.8-10.8)
[2019-03-31 04:28] LABS: % SATURATION 15 % (15-55); IRON 29 ug/dl (35-150); TOTAL IRON BIND CAPACITY 192 ug/dl (260-445); UNSAT IRON BIND CAPACITY 163 ug/dl (150-375)
[2019-03-31 04:37] LABS: ANION GAP 10.2 mmol/L (8-16); CALCIUM 8.8 mg/dL (8.5-10.1); CREATININE - SERUM 8.3 mg/dL (0.6-1.3); PHOSPHOROUS 5.7 mg/dL (2.5-4.9); POTASSIUM - SERUM 4.2 mmol/L (3.5-5.1)
--- NOTE | 2019-03-31 05:16 | NUR ---
PT REMOVED PIV IN RIGHT HAND, TIP INTACT, DRESSING CDI. VITALS STABLE, WILL CONTINUE TO MONITOR.
--- NOTE | 2019-03-31 07:00 | NUR ---
SHIFT ASSESSMENT COMPLETED, PT CARE ASSUMED, MONITORS ON AND WORKING, PT AWAKE AND ALERT, NO SIGNS/SYMPTOMS OF PAIN OR DISCOMFORT NOTED AT THIS TIME, SEE FLOW SHEET FOR FURTHER DETAILS. CALL LIGHT WITHIN REACH, WILL CONTINUE TO OBSERVE.
--- NOTE | 2019-03-31 16:35 | NUR ---
PT EMMANUELLE TO DIALYSIS AT THIS TIME
--- NOTE | 2019-03-31 19:20 | NUR ---
PT PICKED UP FROM DIALYSIS BY THIS NURSE VIA WHEELCHAIR. HAD SOME N/V IN DIALYSIS BUT BETTER NOW. PT IN ROOM. DENIES FURTHER NEEDS. GETTING DISCHARGE PAPERWORK READY.
--- NOTE | 2019-03-31 19:47 | NUR ---
PT DISCHARGED VIA WHEELCHAIR. PICKED UP BY SISTER. IV IN RIGHT FOREARM REMOVED. CATH INTACT. MINIMAL BLEEDING BANDAID APPLIED. BELONGINGS TAKEN WITH PT.
--- NOTE | 2019-04-01 06:59 | MORECARE ---
CASE MANAGEMENT DISCHARGE SUMMARY PATIENT: JUDY MCNULTY UNIT: [id number] ADM DATE: 03/30/19 AGE: 53 : 65 SEX: M ROOM/BED: D.3103 AUTHOR: MARIA GUADALUPE,DOC PHYSICIAN: REFERRING PHYSICIAN: ALE GUPTA MD DATE OF SERVICE: 04/01/19 Discharge Plan Patient Name: JUDY MCNULTY Facility: [facility]:[place] : 1965 Planned Disposition: Home Anticipated Discharge Date: 03/31/19 Discharge Date: 03/31/2019 Expected LOS: 1 Initial Reviewer: [email or web address] Initial Review Date: 03/30/2019 Generated: 04/01/19 7:58 am DCP- Discharge Planning Updated by [email or web address]: Ginger Lindsay on 03/30/19 5:[address] Patient Name: JUDY MCNULTY Admission Status: ER Accout number: [id number] Admission Date: 03-30-2019 : 1965 Admission Diagnosis: Attending: ALE GUPTA Current LOS: 1 Anticipated DC Date: Planned Disposition: Home Primary Insurance: MEDICAID [place] Discharge Planning Comments: CM met with patient at bedside after explaining CM role and obtaining verbal consent. Patient lives at home with his friend ?Kia Mckay [phone] where he just moved in with since discharge from [facility] last week post broken hip. and plans to return there upon discharge. Patient feels this would be a safe discharge. CM discussed availability / needs of home health and medical equipment. Patient denies any discharge needs at this time. Patient's friend had told Caroline and LINDA @ [facility] when he was discharged last week that she would transport patient to dialysis in [place] and get [employer] transportation set up but he never went to dialysis after discharge. Patient is wanting to get set up with dialysis unit here in [place]. CM has informed Caroline with [facility] of patient's request. Patient states he will have his friend drive him home upon discharge. CM will continue to follow and assist as needed with discharge planning / needs. Half Backer: Ginger Lindsay DCPIA - Discharge Planning Initial Assessment Updated by [email or web address]: Ginger Lindsay on 03/30/19 6:24 pm * Is the patient Alert and Oriented? Yes * How many steps to enter\exit or inside your home? several * PCP NO PCP * [facility] * Preadmission Environment Home with Family * ADLs Independent * Equipment Hospital Bed * Other Equipment WALKER * Verbal permission to speak to the caregivers and representatives has been obtained from the patient. No * Please name any agencies selected above. [facility] in [place] * Additional services required to return to the preadmission environment? No * Can the patient safely return to the preadmission environment? Yes * Has this patient been hospitalized within the prior 30 days at any hospital? Yes Last DP export: 03/30/19 5:51 Patient Name: JUDY MCNULTY Page [id number] at 0659 All edits/amendments must be made on the electronic document DICTATION DATE: 04/01/19657 HEAD MACHINIST: GRANT 04/01/19657 RPT#: [id number] DC DATE:03/31/19 STATUS: DIS IN [facility] [address] [place] [address] END OF REPORT
== END 2019-03-31 20:00 | disposition home or self-care (01) | DRG 304 ==
LOC: D.ER 02:42 → D.ICU 05:21 → OBSVTIME 05:21 → D.ICU 05:21 → D.M2 03-31 15:15
PROVIDERS: Family Medicine; Internal Medicine Nephrology; ADMIT Internal Medicine; ATTEND Internal Medicine
PROC: 5A1D70Z Performance of Urinary Filtration, Intermittent, Less than 6 Hours Per Day (ICD-10-PCS; principal; 2019-03-30)
DX: I16.0 Hypertensive urgency (principal); N18.6 End stage renal disease; E11.22 Type 2 diabetes mellitus with diabetic chronic kidney disease; I12.0 Hypertensive chronic kidney disease with stage 5 chronic kidney disease or end stage renal disease; Z99.2 Dependence on renal dialysis; B19.20 Unspecified viral hepatitis C without hepatic coma; F17.210 Nicotine dependence, cigarettes, uncomplicated; D63.1 Anemia in chronic kidney disease; E83.39 Other disorders of phosphorus metabolism; Z91.15 Patient's noncompliance with renal dialysis

== ENCOUNTER 2019-04-08 20:39 | Emergency (ER) | payer MEDICAID ==
[~2019-04-08] VITALS: Ht 180.3 cm; Wt 75.9 kg
[2019-04-08 20:42] VITALS: Ht 180.3 cm; Wt 75.9 kg
[2019-04-08 21:30] VITALS: BP 170/89
== END 2019-04-08 21:26 | disposition home or self-care (01) ==
LOC: D.ER 20:39
DX: R06.02 Shortness of breath (principal)

== ENCOUNTER 2019-06-13 09:33 | Observation (INO) | payer MEDICAID ==
[~2019-06-13] VITALS: Ht 180.3 cm; Wt 75.8 kg
[2019-06-13 10:16] LABS: ANION GAP 17.5 mmol/L (8-16); CALCIUM 9.1 mg/dL (8.5-10.1); CARBON DIOXIDE 21.9 mmol/L (21.0-32.0); CREATININE - SERUM 11.3 mg/dL (0.6-1.3); POTASSIUM - SERUM 4.4 mmol/L (3.5-5.1)
[2019-06-13 10:22] LABS: ALBUMIN 2.6 g/dL (3.4-5.0); BILIRUBIN - TOTAL 0.3 mg/dL (0.2-1.3); PROTEIN - SERUM 8.8 g/dL (6.4-8.2)
[2019-06-13 10:24] LABS: BASOPHILS 0.2 % (0-2); EOSINOPHILS 3.4 % (0-7); HEMATOCRIT 27.6 % (42.0-54.0); HEMOGLOBIN 8.8 g/dL (13.5-17.5); LYMPHOCYTES 16.1 % (15-50); MCH 30.6 pg (26.0-34.0); MCHC 31.9 g/dL (31.0-37.0); MCV 95.8 fL (80.0-100.0); MEAN PLATELET VOLUME 9.1 fL (7.4-10.4); MONOCYTES 9.9 % (2-11); NEUTROPHILS 70.4 % (40-80); PLATELET COUNT 141 10x3/uL (130-400); RBC 2.88 10x6/uL (4.20-6.10); RDW 16.4 % (11.5-14.5); WBC 4.2 10x3/uL (4.8-10.8)
--- NOTE | 2019-06-13 12:20 | NUR ---
PT REFUSING TO ALLOW ME TO ATTEMPT IV ACCESS. STATES THAT HE WILL ONLY ALLOW CENTRAL LINE PLACEMENT.
[2019-06-13 15:09] LABS: UDS - AMPHET NEGATIVE QUAL (NEGATIVE); UDS - BARB NEGATIVE QUAL (NEGATIVE); UDS - BENZO NEGATIVE QUAL (NEGATIVE); UDS - COCAINE POSITIVE QUAL (NEGATIVE); UDS - OPIATE NEGATIVE QUAL (NEGATIVE); UDS - PCP NEGATIVE QUAL (NEGATIVE); UDS - THC NEGATIVE QUAL (NEGATIVE)
[2019-06-13] MEDS ORDERED: PROTONIX40 MG PO (17:49)
[2019-06-13] MEDS ORDERED: HYDROCODON-ACE1 EAC7 PO (17:49)
[2019-06-13 20:30] VITALS: BP 158/89
--- NOTE | 2019-06-14 00:26 | NUR ---
PT LYING IN BED WITH EYES OPEN. COMPLAINS OF PAIN TO RIGHT HIP 8/10 PRN PAIN MEDICATION GIVEN. PT STATES THAT THE PAIN MEDICATION HELPS A LITTLE 3/10 PAIN LEVEL DURING REASSESMENT. REFUSE PERIPHERAL IV AND STATED HE WANTS A CENTRAL LINE INSTEAD. LEFT ARM RESEVERED FOR FISTULA. 2L O2 GIVEN FOR COMFORT. PT IS TO DIALYZIZE 06/14/19 PT ADVISED TO CALL FOR HELP WHEN GETTING OUT OF BED. CALL LIGHT IS WITHIN REACH AND BED IS IN LOWEST POSTION. WILL CONTINUE TO MONITOR.
[2019-06-14 00:31] VITALS: BP 161/94
--- NOTE | 2019-06-14 01:21 | NUR ---
I have reviewed this patient and I concur with the Shift Assessment completed by the Licensed Practical Nurse today this shift.
[2019-06-14 04:43] VITALS: BP 155/85
--- NOTE | 2019-06-14 07:23 | NUR ---
PATIENT IS RESTING ON HIS BACK IN BED AT THIS TIME. HE DOES NOT HAVE AN IV AND HE IS REFUSING PLACEMENT OF AN IV. HE IS A LEFT ARM RESERVE FOR A FISTULA IN HIS LEFT ARM. HE IS GOING TO DIALYSIS TODAY. HE IS HERE BECAUSE HE MISSED DIALYSIS FOR 2 WEEKS. DENIES ANY NEEDS AT THIS TIME.
[2019-06-14 08:07] LABS: BASOPHILS 0 % (0-2); EOSINOPHILS 2.8 % (0-7); HEMATOCRIT 28.7 % (42.0-54.0); HEMOGLOBIN 9.3 g/dL (13.5-17.5); LYMPHOCYTES 25.5 % (15-50); MCH 31.1 pg (26.0-34.0); MCHC 32.4 g/dL (31.0-37.0); MEAN PLATELET VOLUME 9.9 fL (7.4-10.4); MONOCYTES 11.4 % (2-11); NEUTROPHILS 60.3 % (40-80); RBC 2.99 10x6/uL (4.20-6.10); RDW 16.6 % (11.5-14.5); WBC 4.6 10x3/uL (4.8-10.8)
[2019-06-14 08:13] LABS: ANION GAP 15.5 mmol/L (8-16); CALCIUM 9.8 mg/dL (8.5-10.1); CARBON DIOXIDE 26.8 mmol/L (21.0-32.0); CREATININE - SERUM 9.1 mg/dL (0.6-1.3); POTASSIUM - SERUM 4.3 mmol/L (3.5-5.1)
[2019-06-14 08:18] LABS: PLATELET COUNT 174 10x3/uL (130-400)
[2019-06-14 08:51] VITALS: BP 164/83
--- NOTE | 2019-06-14 09:17 | MORECARE ---
CASE MANAGEMENT DISCHARGE SUMMARY PATIENT: JUDY MCNULTY UNIT: [id number] ADM DATE: 06/13/19 AGE: 54 : 65 SEX: M ROOM/BED: D.2134 AUTHOR: BRITT LERMA PHYSICIAN: REFERRING PHYSICIAN: OLIMPIA CHARLES DO DATE OF SERVICE: 06/14/19 Discharge Plan Patient Name: JUDY MCNULTY Facility: [facility]:[place] : 1965 Planned Disposition: Home Anticipated Discharge Date: 06/14/19 Discharge Date: Expected LOS: 1 Initial Reviewer: [email or web address] Initial Review Date: 06/14/2019 Generated: 06/14/19 10:16 am Patient Name: JUDY MCNULTY Page 18581 at 0917 All edits/amendments must be made on the electronic document DICTATION DATE: 06/14/19916 FLUSH TESTER: GRANT 06/14/19916 RPT#: [id number] DC DATE: STATUS: ADM IN [facility] [address] [place] [address] END OF REPORT
--- NOTE | 2019-06-14 11:17 | NUR ---
REPORTED B/P OF 172/90 TO [facility]. HE IS HAVING DIALYSIS TODAY, LATER THIS AFTERNOON AND THEN HE WILL BE DISCHARGED AFTER. SHE SAID JUST LEAVE IT FOR NOW. WILL CONTINUE TO MONITOR.
[2019-06-14 12:16] VITALS: Ht 180.3 cm; Wt 75.8 kg
[2019-06-14 12:34] VITALS: BP 172/90
--- NOTE | 2019-06-14 13:31 | MORECARE ---
CASE MANAGEMENT DISCHARGE SUMMARY PATIENT: JUDY MCNULTY UNIT: [id number] ADM DATE: 06/13/19 AGE: 54 : 65 SEX: M ROOM/BED: D.2134 AUTHOR: BRITT LERMA PHYSICIAN: REFERRING PHYSICIAN: OLIMPIA CHARLES DO DATE OF SERVICE: 06/14/19 Discharge Plan Patient Name: JUDY MCNULTY Facility: [facility]:[place] : 1965 Planned Disposition: Home Anticipated Discharge Date: 06/14/19 Discharge Date: Expected LOS: 1 Initial Reviewer: [email or web address] Initial Review Date: 06/14/2019 Generated: 06/14/19 2:31 pm Last DP export: 06/14/19 8:17 Patient Name: JUDY MCNULTY Page 11592 at 1331 All edits/amendments must be made on the electronic document DICTATION DATE: 06/14/19 1331 SALES DEVELOPMENT EXECUTIVE: GRANT 06/14/19 1331 RPT#: [id number] DC DATE: STATUS: ADM IN [facility] [address] [place] [address] END OF REPORT
--- NOTE | 2019-06-14 13:40 | MORECARE ---
CASE MANAGEMENT DISCHARGE SUMMARY PATIENT: JUDY MCNULTY UNIT: [id number] ADM DATE: 06/13/19 AGE: 54 : 65 SEX: M ROOM/BED: D.2134 AUTHOR: BRITT LERMA PHYSICIAN: REFERRING PHYSICIAN: OLIMPIA CHARLES DO DATE OF SERVICE: 06/14/19 Discharge Plan Patient Name: JUDY MCNULTY Facility: [facility]:[place] : 1965 Planned Disposition: Home Anticipated Discharge Date: 06/14/19 Discharge Date: Expected LOS: 1 Initial Reviewer: [email or web address] Initial Review Date: 06/14/2019 Generated: 06/14/19 2:39 pm DCPIA - Discharge Planning Initial Assessment Updated by [email or web address]: Mak Austin on 06/14/19 1:32 pm * Is the patient Alert and Oriented? Yes * How many steps to enter\exit or inside your home? * PCP DR. BARNETT, [place] * [facility] * Preadmission Environment Home with Family * ADLs Independent * Equipment Rolling Walker * Other Equipment ROLLATOR WALKER NO MEDICAL EQUIPMENT PROVIDER PREFERENCE * List name and contact numbers for known caregivers / representatives who currently or will assist patient after discharge: RAFFAELE BOB, MOTHER, * Verbal permission to speak to the caregivers and representatives has been obtained from the patient. N/A * Community resources currently utilized Other * Please name any agencies selected above. OUTPATIENT DIALYSIS, [facility], 1145, [facility], MEDICAID TRANSPORTATION * Additional services required to return to the preadmission environment? No * Can the patient safely return to the preadmission environment? Yes * Has this patient been hospitalized within the prior 30 days at any hospital? No Last DP export: 06/14/19 12:31 Patient Name: JUDY MCNULTY Page [id number] at 1340 All edits/amendments must be made on the electronic document DICTATION DATE: 06/14/19 1339 MATCHBOOK MAKER: GRANT 06/14/19 1339 RPT#: [id number] DC DATE: STATUS: ADM IN [facility] [address] [place] [address] END OF REPORT
--- NOTE | 2019-06-14 13:48 | MORECARE ---
CASE MANAGEMENT DISCHARGE SUMMARY PATIENT: JUDY MCNULTY UNIT: [id number] ADM DATE: 06/13/19 AGE: 54 : 65 SEX: M ROOM/BED: D.2134 AUTHOR: MARIA GUADALUPE,DOC PHYSICIAN: REFERRING PHYSICIAN: OLIMPIA CHARLES DO DATE OF SERVICE: 06/14/19 Discharge Plan Patient Name: JUDY MCNULTY Facility: [facility]:[place] : 1965 Planned Disposition: Home Anticipated Discharge Date: 06/14/19 Discharge Date: Expected LOS: 1 Initial Reviewer: [email or web address] Initial Review Date: 06/14/2019 Generated: 06/14/19 2:48 pm Comments DCP- Discharge Planning Updated by KATIE: Mak Austin on 06/14/19 12:[address] Patient Name: JUDY MCNULTY Admission Status: ER Accout number: [id number] Admission Date: 06-13-2019 : 1965 Admission Diagnosis: Attending: ALTHEA Current LOS: 1 Anticipated DC Date: 06-14-2019 Planned Disposition: Home Primary Insurance: MEDICAID [place] Discharge Planning Comments: CM RECEIVED DISCHARGE, NOTIFIED BY DYE LAB TECHNICIAN THAT PT HAS NO RIDE HOME EXCEPT FOR MEDICAID TRANSPORATION, WILL NEED DIALYSIS BEFORE DISCHARGE AND CAN BE READY FOR POLICE SERGEANT AT 1615 HOURS. CM MET WITH PT IN ROOM TO DISCUSS DISCHARGE PLANNING AND NEEDS. PT REPORTS LIVING AT HOME INDEPENDENTLY WITH NEPHEW AND NIECE.. PT HAS ROLLING WALKER WITH SEAT AND BRAKES WITH NO MEDICAL EQUIPMENT PROVIDER PREFERENCE. PT HAS NO OUTSIDE SERVICES ASSISTING IN THE HOME. CM DISCUSSED AVAILABILITY OF HOME HEALTH, REHAB SERVICES AND MEDICAL EQUIPMENT. PT DENIES DISCHARGE NEEDS, OTHER THAN NEED FOR TRANSPORTATION HOME, REPORTS THEY HAVE CARS THAT DO NOT WORK AND HE USUALLY TRANSPORTS ON [facility] BUS. CM VERIFIED ADDRESS FOR DISCHARGE HOME. CM CALLED MEDICAID TRANSPORTATION SERVICES, , SPOKE TO LISA AND ARRANGED MEDICAID BUS POLICE SERGEANT AT 1615 HOURS TODAY, THE OLIVER FILTER OPERATOR WILL CALL MED 2 TO NOTIFY WHEN AT FRONT DOOR TO POLICE SERGEANT PT. CONFIRMATION NUMBER [id number]. PURE CULTURE OPERATOR NURSE NOTIFIED. PT NOTIFIED. Software Test Engineer: Mak Austin DCPIA - Discharge Planning Initial Assessment Updated by [email or web address]: Mak Austin on 06/14/19 1:32 pm * Is the patient Alert and Oriented? Yes * How many steps to enter\exit or inside your home? * PCP DR. BARNETT, [place] * Pharmacy [facility] * Preadmission Environment Home with Family * ADLs Independent * Equipment Rolling Walker * Other Equipment ROLLATOR WALKER NO MEDICAL EQUIPMENT PROVIDER PREFERENCE * List name and contact numbers for known caregivers / representatives who currently or will assist patient after discharge: RAFFAELE BOB, MOTHER, * Verbal permission to speak to the caregivers and representatives has been obtained from the patient. N/A * Community resources currently utilized Other * Please name any agencies selected above. OUTPATIENT DIALYSIS, [facility], 1145, [facility], MEDICAID TRANSPORTATION * Additional services required to return to the preadmission environment? No * Can the patient safely return to the preadmission environment? Yes * Has this patient been hospitalized within the prior 30 days at any hospital? No Last DP export: 06/14/19 12:40 Patient Name: JUDY MCNULTY Page 22349 at 1348 All edits/amendments must be made on the electronic document DICTATION DATE: 06/14/191347 FOCUSED FACTORY MANAGER: GRANT 06/14/191347 RPT#: [id number] DC DATE: STATUS: ADM IN [facility] [address] [place] [address] END OF REPORT
--- NOTE | 2019-06-14 15:07 | NUR ---
PATIENT IS BEING DISCHARGED. DISCHARGE TEACHING HAS BEEN COMPLETED. ALL PAPERS HAVE BEEN SIGNED AND HE HAS GATHERED ALL [facility]SI BELONGINGS AND IS GOING HOME WITH THEM. HE IS REFUSING DIALYSIS TODAY. HE WANTS TO GO HOME. CALLED AND LET RENAL PAPER STACKER VIDYA KNOW. SHE SAID IT WILL BE OK, BUT HE MUST GO TO HIS DIALYSIS ON THURSDAY AND HE AGREED. HE WILL GO HOME BY [facility].
--- NOTE | 2019-06-14 15:18 | MORECARE ---
CASE MANAGEMENT DISCHARGE SUMMARY PATIENT: JUDY MCNULTY UNIT: [id number] ADM DATE: 06/13/19 AGE: 54 : 65 SEX: M ROOM/BED: D.2134 AUTHOR: MARIA GUADALUPE,DOC PHYSICIAN: REFERRING PHYSICIAN: OLIMPIA CHARLES DO DATE OF SERVICE: 06/14/19 Discharge Plan Patient Name: JUDY MCNULTY Facility: [facility]:[place] : 1965 Planned Disposition: Home Anticipated Discharge Date: 06/14/19 Discharge Date: Expected LOS: 1 Initial Reviewer: [email or web address] Initial Review Date: 06/14/2019 Generated: 06/14/19 4:17 pm Comments DCP- Discharge Planning Updated by [email or web address]: Mak Ibrahim on 06/14/19 2:[address] Patient Name: JUDY MCNULTY Admission Status: ER Accout number: [id number] Admission Date: 06-13-2019 : 1965 Admission Diagnosis: Attending: ALTHEA Current LOS: 1 Anticipated DC Date: 06-14-2019 Planned Disposition: Home Primary Insurance: MEDICAID [place] Discharge Planning Comments: CM RECEIVED DISCHARGE, NOTIFIED BY TECHNICAL TRANSLATOR THAT PT HAS NO RIDE HOME EXCEPT FOR MEDICAID TRANSPORATION, WILL NEED DIALYSIS BEFORE DISCHARGE AND CAN BE READY FOR CFO CONTROLLER AT 1615 HOURS. CM MET WITH PT IN ROOM TO DISCUSS DISCHARGE PLANNING AND NEEDS. PT REPORTS LIVING AT HOME INDEPENDENTLY WITH NEPHEW AND NIECE.. PT HAS ROLLING WALKER WITH SEAT AND BRAKES WITH NO MEDICAL EQUIPMENT PROVIDER PREFERENCE. PT HAS NO OUTSIDE SERVICES ASSISTING IN THE HOME. CM DISCUSSED AVAILABILITY OF HOME HEALTH, REHAB SERVICES AND MEDICAL EQUIPMENT. PT DENIES DISCHARGE NEEDS, OTHER THAN NEED FOR TRANSPORTATION HOME, REPORTS THEY HAVE CARS THAT DO NOT WORK AND HE USUALLY TRANSPORTS ON [facility] BUS. CM VERIFIED ADDRESS FOR DISCHARGE HOME. CM CALLED MEDICAID TRANSPORTATION SERVICES, , SPOKE TO LISA AND ARRANGED MEDICAID BUS CFO CONTROLLER AT 1615 HOURS TODAY, THE SYSTEMS TEST ENGINEER WILL CALL MED 2 TO NOTIFY WHEN AT FRONT DOOR TO CFO CONTROLLER PT. CONFIRMATION NUMBER [id number]. PATIENT ACCOUNTS SPECIALIST NURSE NOTIFIED. PT NOTIFIED. Lathe Scalper Operator: Mak Ibrahim Appended by Mak Ibrahim on 06/14/2019 15:17 COMPLIANCE QUALITY PERFORMANCE ANALYST: CM NOTIFIED THAT PT DID NOT GO DOWNSTAIRS TO DIALYSIS AND WILL NOT BE READY TO LEAVE AT 1615 HOURS SCHEDULED. CM CALLED AND CANCELLED MEDICAID TRANSPORTATION. CM CALLED AND RECEIVED QUOTE FROM [place] [facility], , $7.25. CM SPOKE TO CM BOILER WASHER SP AND RECEIVED APPROVAL FOR [facility] TRANSPORTATION HOME. CM SET UP PT WILL CALL FOR [facility] TRANSPORT AFTER DIALYSIS. CM SPOKE TO NURSE WHO REPORTS PT NOW REFUSING TO GO TO DAILYSIS AND WANTS TO DISCHARGE HOME NOW. CM WAS NOT ABLE TO RESCHEDULE MEDICAID TRANSPORT FOR TODAY. BEDSIDE NURSE NOTIFIED RENAL LEAD MAN OVER [employer] IN [employer] WHO PROVIDED APPROVAL FOR DISCHARGE TODAY TO FOLLOW UP WITH SCHEDULED DIALYSIS THURSDAY. PT DISCHARGED HOME VIA [facility]. MAK IBRAHIM, CASE MANAGEMENT DCPIA - Discharge Planning Initial Assessment Updated by [email or web address]: Mak Ibrahim on 06/14/19 1:32 pm * Is the patient Alert and Oriented? Yes * How many steps to enter\exit or inside your home? * PCP DR. BARNETT, [place] * [facility] * Preadmission Environment Home with Family * ADLs Independent * Equipment Rolling Walker * Other Equipment ROLLATOR WALKER NO MEDICAL EQUIPMENT PROVIDER PREFERENCE * List name and contact numbers for known caregivers / representatives who currently or will assist patient after discharge: RAFFAELE BOB, MOTHER, * Verbal permission to speak to the caregivers and representatives has been obtained from the patient. N/A * Community resources currently utilized Other * Please name any agencies selected above. OUTPATIENT DIALYSIS, MWF, 1145, [facility] [place], MEDICAID TRANSPORTATION * Additional services required to return to the preadmission environment? No * Can the patient safely return to the preadmission environment? Yes * Has this patient been hospitalized within the prior 30 days at any hospital? No Last DP export: 06/14/19 12:48 Patient Name: JUDY MCNULTY Page [id number] at 1518 All edits/amendments must be made on the electronic document DICTATION DATE: 06/14/191516 IP LITIGATION ASSOCIATE: GRANT 06/14/191516 RPT#: [id number] DC DATE: STATUS: ADM IN [facility] [address] [place] [address] END OF REPORT
== END 2019-06-14 15:59 | disposition home or self-care (01) ==
LOC: D.ER 09:33 → OBSVTIME 12:54 → D.M2 12:54
PROVIDERS: Emergency Medicine; ADMIT Internal Medicine; ATTEND Internal Medicine
DX: E11.22 Type 2 diabetes mellitus with diabetic chronic kidney disease (principal); I12.0 Hypertensive chronic kidney disease with stage 5 chronic kidney disease or end stage renal disease; N18.6 End stage renal disease; Z99.2 Dependence on renal dialysis; Z91.19 Patient's noncompliance with other medical treatment and regimen; D63.1 Anemia in chronic kidney disease

== ENCOUNTER 2019-06-15 17:21 | Emergency (ER) | payer MEDICAID ==
[~2019-06-15] VITALS: Ht 180.3 cm; Wt 75.9 kg
[~2019-06-15 17:21] MED LIST changes: +HYDROCODON-ACE1 EAC7 PO; +PROTONIX40 MG PO
[2019-06-15 17:27] VITALS: Ht 180.3 cm; Wt 75.9 kg
[2019-06-15 18:31] LABS: BASOPHILS 0.2 % (0-2); HEMOGLOBIN 9.2 g/dL (13.5-17.5); IMMATURE GRANULOCYTES 0.2 % (0-5); LYMPHOCYTES 23.1 % (15-50); MCH 31.3 pg (26.0-34.0); MCHC 32.9 g/dL (31.0-37.0); MCV 95.2 fL (80.0-100.0); MEAN PLATELET VOLUME 9.5 fL (7.4-10.4); MONOCYTES 11.4 % (2-11); NEUTROPHILS 62.1 % (40-80); PLATELET COUNT 152 10x3/uL (130-400); RBC 2.94 10x6/uL (4.20-6.10); RDW 16.1 % (11.5-14.5); WBC 4.6 10x3/uL (4.8-10.8)
[2019-06-15 18:44] LABS: ANION GAP 16.9 mmol/L (8-16); CALCIUM 9.1 mg/dL (8.5-10.1); CARBON DIOXIDE 26.3 mmol/L (21.0-32.0); CREATININE - SERUM 10.8 mg/dL (0.6-1.3); POTASSIUM - SERUM 4.2 mmol/L (3.5-5.1)
[2019-06-15 18:52] LABS: ALBUMIN 2.6 g/dL (3.4-5.0); BILIRUBIN - TOTAL 0.23 mg/dL (0.2-1.3); C-REACTIVE PROTEIN 1.9 mg/dL (0.0-0.9); MAGNESIUM - SERUM 2.1 mg/dL (1.8-2.4); PROTEIN - SERUM 8.9 g/dL (6.4-8.2); TROPONIN-I 0.023 ng/mL (0.000-0.060)
[2019-06-15 19:40] VITALS: BP 150/77
== END 2019-06-15 19:40 | disposition home or self-care (01) ==
LOC: D.ER 17:21
PROVIDERS: Emergency Medicine
DX: M25.551 Pain in right hip (principal); R06.00 Dyspnea, unspecified; N18.6 End stage renal disease; Z99.2 Dependence on renal dialysis; E11.9 Type 2 diabetes mellitus without complications; I10 Essential (primary) hypertension; Z72.0 Tobacco use; Z79.4 Long term (current) use of insulin; Z79.84 Long term (current) use of oral hypoglycemic drugs

== ENCOUNTER 2019-08-21 20:39 | Emergency (ER) | payer MEDICAID ==
[~2019-08-21] VITALS: Ht 180.3 cm; Wt 74.1 kg
[2019-08-21 20:50] VITALS: Ht 180.3 cm; Wt 74.1 kg
[2019-08-21 21:34] LABS: BASOPHILS 0.2 % (0-2); EOSINOPHILS 2.4 % (0-7); HEMATOCRIT 26.6 % (42.0-54.0); HEMOGLOBIN 8.4 g/dL (13.5-17.5); IMMATURE GRANULOCYTES 0.2 % (0-5); LYMPHOCYTES 18.8 % (15-50); MCH 31.5 pg (26.0-34.0); MCHC 31.6 g/dL (31.0-37.0); MCV 99.6 fL (80.0-100.0); MEAN PLATELET VOLUME 9.5 fL (7.4-10.4); MONOCYTES 8.9 % (2-11); NEUTROPHILS 69.5 % (40-80); PLATELET COUNT 228 10x3/uL (130-400); RBC 2.67 10x6/uL (4.20-6.10); RDW 17.8 % (11.5-14.5)
[2019-08-21 21:38] LABS: INR 1.04 (0.85-1.17); PROTIME 13.6 SECONDS (11.6-15.0)
[2019-08-21 21:39] LABS: APTT 33.8 SECONDS (22.8-39.4)
[2019-08-21 21:56] LABS: CALC OSMOLALITY 285 mosm/kg (275-300); CALCIUM 9.1 mg/dL (8.5-10.1); CARBON DIOXIDE 29.2 mmol/L (21.0-32.0); CHLORIDE - SERUM 100 mmol/L (98-107); CREATININE - SERUM 8.6 mg/dL (0.6-1.3); GLUCOSE 84 mg/dL (74-106); POTASSIUM - SERUM 3.8 mmol/L (3.5-5.1); SODIUM 136 mmol/L (136-145); UREA NITROGEN 54 mg/dL (7-18); eGFR NON AFRICAN AMERICAN 7 mL/min (90-120)
[2019-08-21 21:59] LABS: ALBUMIN 2.4 g/dL (3.4-5.0); ALKALINE PHOSPHATASE 186 U/L (30-120); ALT (SGPT) 13 U/L (10-68); BILIRUBIN - TOTAL 0.45 mg/dL (0.2-1.3); CKMB 0.6 U/L (0.0-3.6); CREATINE KINASE 35 UL (21-232); PRO BNP 24171 pg/mL (0-125); PROTEIN - SERUM 9.2 g/dL (6.4-8.2); TROPONIN-I 0.042 ng/mL (0.000-0.060)
[2019-08-21 23:04] VITALS: BP 194/100
== END 2019-08-21 23:04 | disposition home or self-care (01) ==
LOC: D.ER 20:39
PROVIDERS: Emergency Medicine
DX: N18.6 End stage renal disease (principal); Z99.2 Dependence on renal dialysis; Z91.15 Patient's noncompliance with renal dialysis; E11.22 Type 2 diabetes mellitus with diabetic chronic kidney disease; Z79.4 Long term (current) use of insulin; I12.0 Hypertensive chronic kidney disease with stage 5 chronic kidney disease or end stage renal disease; Z72.0 Tobacco use; J44.9 Chronic obstructive pulmonary disease, unspecified; G89.29 Other chronic pain; Z76.5 Malingerer [conscious simulation]

== ENCOUNTER 2019-09-08 18:33 | Emergency (ER) | payer MEDICAID ==
[~2019-09-08] VITALS: Ht 180.3 cm; Wt 71.8 kg
[2019-09-08 18:41] VITALS: Ht 180.3 cm; Wt 71.8 kg
[2019-09-08 19:13] LABS: ANION GAP 14.8 mmol/L (8-16); CALCIUM 9.5 mg/dL (8.5-10.1); CARBON DIOXIDE 22.9 mmol/L (21.0-32.0); CREATININE - SERUM 11.8 mg/dL (0.6-1.3); POTASSIUM - SERUM 4.7 mmol/L (3.5-5.1)
[2019-09-08 19:18] LABS: ALBUMIN 2.4 g/dL (3.4-5.0); BILIRUBIN - TOTAL 0.44 mg/dL (0.2-1.3); MAGNESIUM - SERUM 2.3 mg/dL (1.8-2.4)
[2019-09-08 19:26] LABS: BASOPHILS 0.2 % (0-2); EOSINOPHILS 2.1 % (0-7); HEMATOCRIT 27.2 % (42.0-54.0); HEMOGLOBIN 8.4 g/dL (13.5-17.5); IMMATURE GRANULOCYTES 0.2 % (0-5); LYMPHOCYTES 20.1 % (15-50); MCH 30.8 pg (26.0-34.0); MCHC 30.9 g/dL (31.0-37.0); MCV 99.6 fL (80.0-100.0); MEAN PLATELET VOLUME 9.7 fL (7.4-10.4); MONOCYTES 9.7 % (2-11); NEUTROPHILS 67.7 % (40-80); RBC 2.73 10x6/uL (4.20-6.10); RDW 16.8 % (11.5-14.5); WBC 5.3 10x3/uL (4.8-10.8)
[2019-09-08 19:32] LABS: PLATELET COUNT 182 10x3/uL (130-400)
--- NOTE | 2019-09-08 19:34 | NUR ---
PATIENT IS IN ER 21- PATIENT IS HAVING SUICIDIAL IDEATIONS AND WANTS TO HURT HIMSELF, HE HAS A HISTORY OF MENTAL ILLNESS, TEARFUL AT TIMES DURING THIS INTERVIEW, HE IS UNABLE TO COMMIT TO A SAFETY PLAN AT THIS TIME THEREFORE HE WILL BE PLACED ON A 1:1. SUICIDE ENVIORNMENT CHECK COMPLETED. INFORMATION WITH A 1-800 NUMBER GIVEN TO PATIENT FOR FUTURE REFERENCE
[2019-09-08 20:21] LABS: BACTERIA MODERATE /hpf (NEGATIVE); BILIRUBIN NEGATIVE (NEGATIVE); EPITHELIAL CELLS 0-5 /hpf (0-5); GLUCOSE NEGATIVE (NEGATIVE); KETONE NEGATIVE (NEGATIVE); NITRITE NEGATIVE (NEGATIVE); RED CELLS - URINE 0-5 /hpf (0-5); UROBILINOGEN NORMAL (NORMAL); YEAST RARE /hpf (NONE SEEN)
[2019-09-08 20:23] LABS: UDS - AMPHET NEGATIVE QUAL (NEGATIVE); UDS - BARB NEGATIVE QUAL (NEGATIVE); UDS - BENZO NEGATIVE QUAL (NEGATIVE); UDS - COCAINE NEGATIVE QUAL (NEGATIVE); UDS - OPIATE POSITIVE QUAL (NEGATIVE); UDS - PCP NEGATIVE QUAL (NEGATIVE); UDS - THC NEGATIVE QUAL (NEGATIVE)
[2019-09-09 00:30] VITALS: BP 172/78
== END 2019-09-09 00:30 ==
LOC: D.ER 18:33
PROVIDERS: Emergency Medicine
DX: R45.851 Suicidal ideations (principal); I12.0 Hypertensive chronic kidney disease with stage 5 chronic kidney disease or end stage renal disease; E11.22 Type 2 diabetes mellitus with diabetic chronic kidney disease; N18.6 End stage renal disease; Z99.2 Dependence on renal dialysis; J44.9 Chronic obstructive pulmonary disease, unspecified; Z72.0 Tobacco use; Z79.84 Long term (current) use of oral hypoglycemic drugs; F20.9 Schizophrenia, unspecified; Z79.4 Long term (current) use of insulin; R44.0 Auditory hallucinations

== ENCOUNTER 2020-02-03 09:33 | Emergency (ER) | payer MEDICAID ==
[~2020-02-03] VITALS: Ht 180.3 cm; Wt 63.6 kg
[2020-02-03 09:35] VITALS: Ht 180.3 cm; Wt 63.6 kg
[2020-02-03 10:53] LABS: ANION GAP 15.3 mmol/L (8-16); CALCIUM 9.3 mg/dL (8.5-10.1); CREATININE - SERUM 11.4 mg/dL (0.6-1.3); POTASSIUM - SERUM 4.3 mmol/L (3.5-5.1)
[2020-02-03 10:57] LABS: BASOPHILS 0.2 % (0-2); EOSINOPHILS 3.6 % (0-7); HEMATOCRIT 24.6 % (42.0-54.0); IMMATURE GRANULOCYTES 0.2 % (0-5); LYMPHOCYTES 15.6 % (15-50); MCH 28.5 pg (26.0-34.0); MCHC 30.5 g/dL (31.0-37.0); MCV 93.5 fL (80.0-100.0); MONOCYTES 9.9 % (2-11); NEUTROPHILS 70.5 % (40-80); PLATELET COUNT 164 10x3/uL (130-400); RBC 2.63 10x6/uL (4.20-6.10); RDW 19.6 % (11.5-14.5); WBC 5.8 10x3/uL (4.8-10.8)
[2020-02-03 10:59] LABS: ALBUMIN 2.5 g/dL (3.4-5.0); BILIRUBIN - TOTAL 0.54 mg/dL (0.2-1.3); PROTEIN - SERUM 9.2 g/dL (6.4-8.2)
[2020-02-03 11:10] LABS: HEMOGLOBIN 7.5 g/dL (13.5-17.5)
[2020-02-03 12:28] LABS: BILIRUBIN NEGATIVE (NEGATIVE); GLUCOSE 50 mg/dL (NEGATIVE); KETONE NEGATIVE (NEGATIVE); NITRITE NEGATIVE (NEGATIVE); UROBILINOGEN NORMAL (NORMAL)
[2020-02-03 12:30] LABS: BACTERIA FEW /hpf (NEGATIVE); EPITHELIAL CELLS 0-5 /hpf (0-5); RED CELLS - URINE OCC /hpf (0-5); WHITE CELLS - URINE RARE /hpf (NEGATIVE)
[2020-02-03 13:21] VITALS: BP 188/99
== END 2020-02-03 16:49 | disposition home or self-care (01) ==
LOC: D.ER 09:33
PROVIDERS: Family Medicine
DX: I12.0 Hypertensive chronic kidney disease with stage 5 chronic kidney disease or end stage renal disease (principal); E11.22 Type 2 diabetes mellitus with diabetic chronic kidney disease; N18.6 End stage renal disease; Z99.2 Dependence on renal dialysis; J81.1 Chronic pulmonary edema; D64.9 Anemia, unspecified; R06.02 Shortness of breath; Z91.15 Patient's noncompliance with renal dialysis; Z72.0 Tobacco use; Z79.84 Long term (current) use of oral hypoglycemic drugs

== ENCOUNTER 2020-02-12 20:44 | Observation (INO) | payer MEDICAID ==
[~2020-02-12] VITALS: Ht 180.3 cm; Wt 63.6 kg
[2020-02-12 20:47] VITALS: Ht 180.3 cm; Wt 63.6 kg
--- NOTE | 2020-02-12 21:00 | NUR ---
PT DEMANDING PAIN MEDS. INFORMED.
[2020-02-12 21:37] LABS: BASOPHILS 0.2 % (0-2); EOSINOPHILS 3.1 % (0-7); HEMATOCRIT 22.1 % (42.0-54.0); LYMPHOCYTES 17.3 % (15-50); MCH 29.1 pg (26.0-34.0); MCHC 30.8 g/dL (31.0-37.0); MCV 94.4 fL (80.0-100.0); MEAN PLATELET VOLUME 9.5 fL (7.4-10.4); MONOCYTES 6.8 % (2-11); NEUTROPHILS 72.6 % (40-80); PLATELET COUNT 142 10x3/uL (130-400); RBC 2.34 10x6/uL (4.20-6.10); RDW 19.2 % (11.5-14.5); WBC 5.1 10x3/uL (4.8-10.8)
[2020-02-12 21:41] LABS: HEMOGLOBIN 6.8 g/dL (13.5-17.5)
[2020-02-12 21:47] LABS: CALC OSMOLALITY 298 mosm/kg (275-300); CALCIUM 9.2 mg/dL (8.5-10.1); CARBON DIOXIDE 24.7 mmol/L (21.0-32.0); CHLORIDE - SERUM 104 mmol/L (98-107); CREATININE - SERUM 11.2 mg/dL (0.6-1.3); GLUCOSE 87 mg/dL (74-106); POTASSIUM - SERUM 4.8 mmol/L (3.5-5.1); SODIUM 139 mmol/L (136-145); UREA NITROGEN 74 mg/dL (7-18); eGFR NON AFRICAN AMERICAN 5 mL/min (90-120)
[2020-02-12 21:48] LABS: APTT 35.9 SECONDS (22.8-39.4); INR 1.14 (0.85-1.17); PROTIME 14.5 SECONDS (11.6-15.0)
--- NOTE | 2020-02-12 22:00 | NUR ---
PT REFUSED DRESSING FOR L FOOT. PT ASKING FOR PAIN MEDS. INFORMED.
[2020-02-12 22:08] LABS: ALBUMIN 2.5 g/dL (3.4-5.0); ALKALINE PHOSPHATASE 129 U/L (30-120); ALT (SGPT) 11 U/L (10-68); BILIRUBIN - TOTAL 0.48 mg/dL (0.2-1.3); CKMB 1.6 U/L (0.0-3.6); CREATINE KINASE 50 UL (21-232); PROTEIN - SERUM 9.3 g/dL (6.4-8.2)
[2020-02-12 22:11] LABS: TROPONIN-I 0.076 ng/mL (0.000-0.060)
[2020-02-12 22:59] LABS: BILIRUBIN NEGATIVE (NEGATIVE); EPITHELIAL CELLS 0-5 /hpf (0-5); KETONE NEGATIVE (NEGATIVE); NITRITE NEGATIVE (NEGATIVE); RED CELLS - URINE 0-5 /hpf (0-5); UROBILINOGEN NORMAL (NORMAL)
[2020-02-12 23:00] VITALS: BP 175/89
[2020-02-12 23:00] LABS: BACTERIA MANY /hpf (NONE SEEN)
[2020-02-12 23:10] LABS: UDS - AMPHET NEGATIVE QUAL (NEGATIVE); UDS - BARB NEGATIVE QUAL (NEGATIVE); UDS - BENZO NEGATIVE QUAL (NEGATIVE); UDS - COCAINE NEGATIVE QUAL (NEGATIVE); UDS - OPIATE NEGATIVE QUAL (NEGATIVE); UDS - PCP NEGATIVE QUAL (NEGATIVE); UDS - THC NEGATIVE QUAL (NEGATIVE)
--- NOTE | 2020-02-13 | NUR ---
PT SITTING ON SIDE OF BED USING URINAL AT THIS TIME.
[2020-02-13 01:30] VITALS: BP 181/96
[2020-02-13 03:32] VITALS: BP 173/88
--- NOTE | 2020-02-13 03:32 | NUR ---
PT MOVED TO INPATIENT BED FROM [facility] FOR COMFORT.
--- NOTE | 2020-02-13 03:45 | NUR ---
INFORMED THAT WE HAVE BEEN UNSUCCESSFUL WITH IV ATTEMPTS. STATES TO HOLD OFF ON IV. PT WILL DIALYSE IN AM.
[2020-02-13 04:42] VITALS: BP 184/85
[2020-02-13 06:09] VITALS: BP 183/87
--- NOTE | 2020-02-13 07:10 | NUR ---
PT REPORT FROM LINDEN GLASGOW
[2020-02-13 08:00] VITALS: BP 169/94
--- NOTE | 2020-02-13 08:40 | NUR ---
PT TAKEN TO DIALYSIS
[2020-02-13 10:25] LABS: ANION GAP 16.7 mmol/L (8-16); CALCIUM 8.9 mg/dL (8.5-10.1); CARBON DIOXIDE 21.1 mmol/L (21.0-32.0); CREATININE - SERUM 11.4 mg/dL (0.6-1.3); MAGNESIUM - SERUM 2.2 mg/dL (1.8-2.4); PHOSPHOROUS 6.4 mg/dL (2.5-4.9); POTASSIUM - SERUM 4.8 mmol/L (3.5-5.1)
[2020-02-13 10:26] LABS: BASOPHILS 0.2 % (0-2); HEMATOCRIT 20.5 % (42.0-54.0); IMMATURE GRANULOCYTES 0.2 % (0-5); LYMPHOCYTES 17.9 % (15-50); MCH 29.4 pg (26.0-34.0); MCHC 31.2 g/dL (31.0-37.0); MEAN PLATELET VOLUME 9.2 fL (7.4-10.4); MONOCYTES 9.1 % (2-11); NEUTROPHILS 68.6 % (40-80); PLATELET COUNT 132 10x3/uL (130-400); RBC 2.18 10x6/uL (4.20-6.10); RDW 19.4 % (11.5-14.5); WBC 4.8 10x3/uL (4.8-10.8)
[2020-02-13 10:30] LABS: HEMOGLOBIN 6.4 g/dL (13.5-17.5)
--- NOTE | 2020-02-13 10:32 | NUR ---
[facility] WAS CALLED FOR PT. HGB OF 6.4, INFORMATION GIVEN TO DIALYSIS NIRSE AND BLOOD IS TRANSFUSSIONS AT THIS TIME
--- NOTE | 2020-02-13 13:16 | NUR ---
PT BROUGHT BACK FROM DIALYSIS
--- NOTE | 2020-02-13 13:49 | MORECARE ---
CASE MANAGEMENT DISCHARGE SUMMARY PATIENT: JUDY MCNULTY UNIT: [id number] ADM DATE: 02/12/20 AGE: 54 : 65 SEX: M ROOM/BED: D.E16 AUTHOR: BRITT LERMA PHYSICIAN: REFERRING PHYSICIAN: JEFF TRINIDAD MD DATE OF SERVICE: 02/13/20 Discharge Plan Patient Name: JUDY MCNULTY Facility: [facility]:[place] : 1965 Planned Disposition: Home Anticipated Discharge Date: 02/13/20 Discharge Date: Expected LOS: 1 Initial Reviewer: [email or web address] Initial Review Date: 02/13/2020 Generated: 02/13/20 2:49 pm Comments DCP- Discharge Planning Updated by [email or web address]: Marixa Yates on 02/13/20 12:[address] CM met with patient in the HD unit regarding DC plans/needs. Patient states he lives with his cousin, Daryl Padilla @[address] [place] [address], who brought patient to the hospital. PCP: Patient is unsure. Pharmacy: [facility] Patient gives CM permission to speak with his mother Cleopatra Sauer @same address ([phone]) for information relating to DC plans. CM contacted mother to verify. DME: [facility], hospital bed, w/c. Patient's mother states that the patient is mobile and uses the walker, mostly. Patient's mother would like for patient to have [facility] transportation, due to her working hours. CM contacted Caroline Crockett ([phone]), [facility] for time and days of HD. Patient's HD days are //Sat @1230, at [facility]. Per Caroline Crockett, the patient has not been to HD since the first january and was going to be discharged from the HD clinic Feb 13. Patient's mother states the patient hasn't dialyzed in the past week. CM attempted to arrange transportation with [facility], spoke with Isela, but the patient only authorizes his cousin, Daryl Padilla (unknown number) to make appointments for him. CM will continue to attempt to arrange transportation for HD in [facility]. Patient Name: JUDY MCNULTY Page [phone] at 1349 All edits/amendments must be made on the electronic document DICTATION DATE: 02/13/201348 BUSINESS AND SERVICES INSTRUCTOR: GRANT 02/13/201348 RPT#: [id number] DC DATE: STATUS: ADM IN [facility] [address] [place] [address] END OF REPORT
--- NOTE | 2020-02-13 14:37 | MORECARE ---
CASE MANAGEMENT DISCHARGE SUMMARY PATIENT: JUDY MCNULTY UNIT: [id number] ADM DATE: 02/12/20 AGE: 54 : 65 SEX: M ROOM/BED: D.E16 AUTHOR: BRITT LERMA PHYSICIAN: REFERRING PHYSICIAN: JEFF TRINIDAD MD DATE OF SERVICE: 02/13/20 Discharge Plan Patient Name: JUDY MCNULTY Facility: [facility]:[place] : 1965 Planned Disposition: Home Anticipated Discharge Date: 02/13/20 Discharge Date: Expected LOS: 1 Initial Reviewer: [email or web address] Initial Review Date: 02/13/2020 Generated: 02/13/20 3:36 pm Comments DCP- Discharge Planning Updated by [email or web address]: Marixa Yates on 02/13/20 1:[address] 1423: CM met with the patient again, regarding DC transportation home and to HD. Per Martita, with [facility], the patient does not have a textile broker assigned for his transportation. The patient is still listed an being in a nursing facility. Medicaid sent a letter Thursday, to the patient and he verifies receipt, regarding going to the [facility] office in order to change his address to his current [address] [place] [address], but as yet the patient has not done this. CM cannot arrange transportation, per [facility]. Patient will require a taxi ride home, if DC'd today. Patient states that he will transport via taxi to [facility] HD T/TH/Sat @1230. CM met with patient in the HD unit regarding DC plans/needs. Patient states he lives with his cousin, Daryl Padilla @[address] [place] [address], who brought patient to the hospital. PCP: Patient is unsure. Pharmacy: [facility]. Patient gives CM permission to speak with his mother Cleopatra Sauer @same address ([phone]) for information relating to DC plans. CM contacted mother to verify. DME: Walker, hospital bed, w/c. Patient's mother states that the patient is mobile and uses the walker, mostly. Patient's mother would like for patient to have [employer] transportation, due to her working hours. CM contacted Caroline Crockett ([phone]), [facility] for time and days of HD. Patient's HD days are //Sat @1230, at [facility]. Per Caroline Crockett, the patient has not been to HD since the first january and was going to be discharged from the HD clinic Feb 13. Patient's mother states the patient hasn't dialyzed in the past week. CM attempted to arrange transportation with [facility], spoke with Isela, but the patient only authorizes his cousin, Daryl Padilla (unknown number) to make appointments for him. CM will continue to attempt to arrange transportation for HD in [facility]. Last DP export: 02/13/20 12:49 p Patient Name: JUDY MCNULTY Page 15639 at 1437 All edits/amendments must be made on the electronic document DICTATION DATE: 02/13/201435 SPICE FUMIGATOR: GRANT 02/13/201435 RPT#: [id number] DC DATE: STATUS: ADM IN [facility] [address] [place] [address] END OF REPORT
--- NOTE | 2020-02-13 14:45 | MORECARE ---
CASE MANAGEMENT DISCHARGE SUMMARY PATIENT: JUDY MCNULTY UNIT: [id number] ADM DATE: 02/12/20 AGE: 54 : 65 SEX: M ROOM/BED: D.E16 AUTHOR: BRITT LERMA PHYSICIAN: REFERRING PHYSICIAN: JEFF TRINIDAD MD DATE OF SERVICE: 02/13/20 Discharge Plan Patient Name: JUDY MCNULTY Facility: [facility]:[place] : 1965 Planned Disposition: Home Anticipated Discharge Date: 02/13/20 Discharge Date: Expected LOS: 1 Initial Reviewer: [email or web address] Initial Review Date: 02/13/2020 Generated: 02/13/20 3:44 pm Comments DCP- Discharge Planning Updated by [id number]: Marixa Yates on 02/13/20 1:[address] 1423: CM met with the patient again, regarding DC transportation home and to HD. Per Martita, with [facility], the patient does not have a lease broker assigned for his transportation. The patient is still listed an being in a nursing facility. Medicaid sent a letter Thursday, to the patient and he verifies receipt, regarding going to the [facility] office in order to change his address to his current [address] [place] [address], but as yet the patient has not done this. CM cannot arrange transportation, per [facility]. Patient will require a taxi ride home, if DC'd today. Patient states that he will transport via taxi to [facility] HD T/TH/Sat @1230. CM contacted Jazmyn Padilla APRN, regarding dc to make her aware that CM has met with patient. CM met with patient in the HD unit regarding DC plans/needs. Patient states he lives with his cousin, Daryl Padilla @[address] [place] [address] Street, who brought patient to the hospital. PCP: Patient is unsure. Pharmacy: [facility] Patient gives CM permission to speak with his mother Cleopatra Sauer @same address ([phone]) for information relating to DC plans. CM contacted mother to verify. DME: Walker, hospital bed, w/c. Patient's mother states that the patient is mobile and uses the walker, mostly. Patient's mother would like for patient to have [employer] transportation, due to her working hours. CM contacted Caroline Crockett ([phone]), [facility] for time and days of HD. Patient's HD days are //Sat @1230, at [facility]. Per Caroline Crockett, the patient has not been to HD since the first january and was going to be discharged from the HD clinic Feb 13. Patient's mother states the patient hasn't dialyzed in the past week. CM attempted to arrange transportation with [facility], spoke with Isela, but the patient only authorizes his cousin, Daryl Padilla (unknown number) to make appointments for him. CM will continue to attempt to arrange transportation for HD in [facility]. Last DP export: 02/13/20 1:37 p Patient Name: JUDY MCNULTY Page 47523 at 1445 All edits/amendments must be made on the electronic document DICTATION DATE: 02/13/201443 CERTIFIED HISTOLOGIC TECHNICIAN: GRANT 02/13/20 1444 RPT#: [id number] DC DATE: STATUS: ADM IN [facility] [address] [place] [address] END OF REPORT
--- NOTE | 2020-02-13 18:44 | MORECARE ---
CASE MANAGEMENT DISCHARGE SUMMARY PATIENT: JUDY MCNULTY UNIT: [id number] ADM DATE: 02/12/20 AGE: 54 : 65 SEX: M ROOM/BED: D.E16 AUTHOR: BRITT LERMA PHYSICIAN: REFERRING PHYSICIAN: JEFF TRINIDAD MD DATE OF SERVICE: 02/13/20 Discharge Plan Patient Name: JUDY MCNULTY Facility: [facility]:[place] : 1965 Planned Disposition: Home Anticipated Discharge Date: 02/13/20 Discharge Date: Expected LOS: 1 Initial Reviewer: [email or web address] Initial Review Date: 02/13/2020 Generated: 02/13/20 7:43 pm Comments DCP- Discharge Planning Updated by [email or web address]: Marixa Yates on 02/13/20 1:[address] 1423: CM met with the patient again, regarding DC transportation home and to HD. Per Martita, with [facility], the patient does not have a livestock broker assigned for his transportation. The patient is still listed an being in a nursing facility. Medicaid sent a letter Thursday, to the patient and he verifies receipt, regarding going to the [facility] office in order to change his address to his current [address] [place] [address], but as yet the patient has not done this. CM cannot arrange transportation, per [facility]. Patient will require a taxi ride home, if DC'd today. Patient states that he will transport via taxi to [facility] HD T/TH/Sat @1230. CM contacted Jazmyn Padilla APRN, regarding dc to make her aware that CM has met with patient. CM met with patient in the HD unit regarding DC plans/needs. Patient states he lives with his cousin, Daryl Padilla @[address] [place] [address] Street, who brought patient to the hospital. PCP: Patient is unsure. Pharmacy: [facility] Patient gives CM permission to speak with his mother Cleopatra Sauer @same address ([phone]) for information relating to DC plans. CM contacted mother to verify. DME: Walker, hospital bed, w/c. Patient's mother states that the patient is mobile and uses the walker, mostly. Patient's mother would like for patient to have [employer] transportation, due to her working hours. CM contacted Caroline Crockett ([phone]), [facility] for time and days of HD. Patient's HD days are //Sat @1230, at [facility]. Per Caroline Crockett, the patient has not been to HD since the first january and was going to be discharged from the HD clinic Feb 13. Patient's mother states the patient hasn't dialyzed in the past week. CM attempted to arrange transportation with [facility], spoke with Isela, but the patient only authorizes his cousin, Daryl Padilla (unknown number) to make appointments for him. CM will continue to attempt to arrange transportation for HD in [facility]. Last DP export: 02/13/20 1:45 p Patient Name: JUDY MCNULTY Page [phone] at 1304 All edits/amendments must be made on the electronic document DICTATION DATE: 02/13/201843 WASTEWATER DESIGN ENGINEER: GRANT 02/13/201843 RPT#: [id number] DC DATE: STATUS: ADM IN [facility] [address] [place] [address] END OF REPORT
[2020-02-13 18:47] VITALS: BP 156/87
== END 2020-02-13 18:47 | disposition home or self-care (01) ==
LOC: D.ER 20:44 → D.EDHOLD 23:36 → OBSVTIME 23:36 → D.EDHOLD 23:36
PROVIDERS: Family Medicine; ADMIT Internal Medicine Nephrology; ATTEND Internal Medicine Nephrology
DX: I12.0 Hypertensive chronic kidney disease with stage 5 chronic kidney disease or end stage renal disease (principal); E11.22 Type 2 diabetes mellitus with diabetic chronic kidney disease; N18.6 End stage renal disease; D64.9 Anemia, unspecified; Z91.15 Patient's noncompliance with renal dialysis; E83.39 Other disorders of phosphorus metabolism; Z79.4 Long term (current) use of insulin